=== PATIENT | female | born 1945 | race Two or more races ===

== ENCOUNTER 2025-07-02 17:09 | Inpatient (IN) | payer MEDICARE, MEDICAID ==
[~2025-07-02] VITALS: Ht 154.9 cm; Wt 116.8 kg
[~2025-07-02 17:09] MED LIST: ALPR0.254 PO; AMIO200T33 PO; APIX5TAB PO; ATOR40TA52 PO; DOXY100C79 PO; FLUT1INH6 IN; FURO40TA4 PO; HYDR25TA88 PO; LEVE500T40 PO; LEVO125T7 PO; LOSA-533 PO; METF-370 PO; METO-158 PO; PAR20T PO; POTA-36 PO; SPIR25TA8 PO
--- NOTE | 2025-07-02 17:14 | ED.PDOC ---
GI ASSESSMENT HPI Comments 80 y/o obese, bed-bound, and Estonian-speaking F is JAI from private residence for c/c of nonradiating, lower abdominal pain with constipation for 1 week. On scene, patient was found in AFib RVR in the 130's range. Remaining vitals on scene and en route were commented to have been stable and within normal limits. On scene blood glucose of 171. Vitals on scene: Blood pressure of 135/62 Pulse: 130 Respiratory rate: 20 SpO2: 96% on 3LPM home O2 HPI: Poor Historian. bueno: afib rvr, abd pain x1wk. on O2. on plavix obese, bed ridden, r deficit CVA, nancy edema 3/4 Past Medical History: AFib w/RVR, CHF, DM, COPD w/3lpm, CVA w/right sided and speech deficits, Plavix use Past Surgical History: pacemaker Discharge Summary Date of Admission Mar 23, 2025 at 19:49 Date of Discharge: Apr 02, 2025 Admitting Diagnosis AFib with RVR Final Diagnosis/Problems List Atrial fibrillation with rapid ventricular rate -acute hypoxic respiratory failure -AFib with RVR -diabetes mellitus -morbid obesity -acute kidney injury, vasomotor nephropathy -anemia -questionable bacteremia -history of PPI with end of life battery -hyperkalemia -acute kidney injury, probable vasomotor nephropathy REVIEW OF SYSTEMS: CONSTITUTIONAL: Denies acute: fever, diaphoresis, chills, HEAD: Denies acute: headache, photophobia Eyes: Denies acute: Double vision, vision loss, eye pain, eye discharge. EARS: Denies acute: tinnitus, hearing loss, ear discharge, ear pain, THROAT: Denies acute: sore throat, swelling, difficulty swallowing , pain with swallowing, change in voice. NECK: Denies acute: neck pain, neck swelling, stiff neck. HEART: Denies acute : chest pain, palpitations, LUNGS: Denies acute: SOB, wheezing, cough, hemoptysis ABDOMEN: Denies acute: Nausea, Vomiting, diarrhea, melena , hematemesis, hematochezia SKIN: Denies acute: rash, redness, lesions, itchiness. EXTREMITIES: Denies acute: calf pain, numbness, tingling, weakness, denies pain in extremity. Denies acute: Low back pain. Neuro: Denies acute: focal neurological deficit, motor or sensory focal neurological deficit, tremors, seizure like activity, confusion, dizziness, change in mental status, loss of bowel or bladder function, cauda equina like symptoms. : Denies acute: dysuria, hematuria, flank pain, increase in urinary frequency. PSYCH: Denies acute: hallucination, suicidal ideation, homicidal ideation. FEMALE: Denies acute: abnormal vaginal bleeding, foul odor, unusual discharge. PHYSICAL EXAM: General: ------moderate--acute distress, awake and alert. Head: normocephalic, atraumatic. No raccoon's eyes, no ba sign. Neck: supple, trachea is midline, no swelling. Throat: Normal phonation. Eyes:, no erythema, no purulent discharge, no proptosis, no icterus. Heart: Irregular rate and rhythm consistent with atrial fibrillation with RVR, no significant murmur appreciated. Lungs: no apparent respiratory distress, No wheezing, no rhonchi, no crackles. No stridors Clear to auscultation bilaterally. Abdomen: Generalized tender to palpation, non distended, soft, no guarding, no rebound, + bowel sounds. Morbidly obese Neuro: Awake, Alert, oriented to name, self, situation, follows commands Skin: no petechia, no purpura, no cyanosis, non-pale, not jaundice. Lower extremities: --3/4 b/l - Pitting edema no deformity, no focal swelling, no calf TTP. Makes eye contact. Face: no apparent facial droop. ED COURSE: DISCLAIMER: This medical document was created using an electronic medical record system with voice recognition software and computerized dictation system. Although this document has been carefully reviewed, there might still be some phonetic and typographical errors. Occasional wrong-word or "sound-alike" substitutions may have occurred due to the inherent limitations of voice recognition software. These areas are purely typographical due to imperfections of the software programs and do not reflect any compromise in the patient's medical care. Please read the chart carefully and recognize, using context, where these substitutions have occurred. Chief Complaint: Abdominal Pain Time Seen by MD: 17:00 Reviewed Notes: Apparel Pattern Maker Notes, Medications, Allergies Allergies: Coded Allergies: NO KNOWN ALLERGIES (Unverified , 03/23/25) Home Meds Active Scripts Oseltamivir Phosphate (Tamiflu) 75 Mg Cap, 75 MG PO DAILY, #4 CAP Prov:NEERAJ WOMACK MD 07/06/25 Cholecalciferol (VITAMIN D3) 3,000 Unit Tab, 3000 UNIT PO DAILY PRN, #30 TAB Prov:NEERAJ WOMACK MD 07/06/25 Zinc Sulfate (Zinc) 220 Mg Cap, 220 MG PO DAILY, #30 CAP Prov:NEERAJ WOMACK MD 07/06/25 Ascorbic Acid (VITAMIN C) 500 Mg Cap, 500 MG PO BID, #30 CAP Prov:NEERAJ WOMACK MD 07/06/25 Doxycycline (Monohydrate) (Doxycycline) 100 Mg Cap, 100 MG PO BID for 5 Days, #10 CAP Prov:BG VALLEJO NP 04/02/25 Reported Medications Metoprolol Tartrate (Metoprolol Tartrate) 50 Mg Tab, 50 MG PO BIDD for 30 Days, MG 03/31/25 Fluticasone Furoate-Vilanterol (Breo Ellipta 200-25 Mcg/INH) 1 Inh Inh, 1 INH IN, INHALER 03/24/25 Levetiracetam (Keppra) 500 Mg Tab, 500 MG PO, TAB 03/24/25 Atorvastatin Calcium (ATORVASTATIN CALCIUM) 40 Mg Tab, 40 MG PO DAILY, TAB 03/24/25 Furosemide (Furosemide) 40 Mg Tab, 40 MG PO DAILY for 30 Days 03/24/25 Spironolactone (Spironolactone) 25 Mg Tab, 25 MG PO, TAB 03/24/25 Amiodarone Hcl (Amiodarone Hcl) 200 Mg Tab, 100 MG PO DAILY for 30 Days 03/24/25 Alprazolam (Alprazolam) 0.25 Mg Tab, 0.25 MG PO DAILYPRN PRN for ANXIETY, TAB 03/24/25 Paroxetine (PAXIL TABLET) 20 Mg Tb, 20 MG PO, TAB 03/24/25 Levothyroxine Sodium (Levothyroxine Sodium) 125 Mcg Tab, 125 MCG PO QAM for 30 Days, MCG 03/24/25 Losartan Potassium (Losartan Potassium) 25 Mg Tab, 25 MG PO DAILY for 30 Days, MG 03/24/25 Hydralazine Hcl (Hydralazine Hcl) 25 Mg Tab, 25 MG PO for 30 Days, MG 03/24/25 Apixaban Base (ELIQUIS) 5 Mg Tab, 5 MG PO DAILY, TAB 03/24/25 Metformin Hydrochloride (Metformin Hcl) 500 Mg Tab, 500 MG PO IBID for 30 Days, MG 03/24/25 Potassium Chloride (POTASSIUM CHLORIDE CR) 10 Meq Tb, 20 MEQ PO, TAB 03/24/25 Information Source: Emergency Med Personnel Past Medical History PAST MEDICAL HISTORY: AFIB, CHF, DM, HTN Surgical History: Pacemaker STORE SALES CONSULTANT History: No Pertinent STORE SALES CONSULTANT History Social History Smoker: Non-Smoker Alcohol: Denies ETOH Use Drugs: Denies Drug Use Was a procedure done? Was a procedure done?: No GI differential Dx Differential Diagnosis: Other (DDX include Diverticulitis, colitis, gastroenteritis, acute abdomen, SBO, enteritis, constipation, volvulus, appendicitis, Gallbladder disease, choledocolithiasis, ascending cholangitis, pancreatitis, intraAbdominal mass/neoplasm, hepatitis, UTI, pylonephritis, kidney stone, aneurysm, dissection, Inflammatory bowel disease, gastroparesis, ischemic bowel,,,,,,Food poisoning, bacterial/parasitic/viral etiology, trauma, diabetes DKA,ovarian torsion, ovarian cyst/mass, tubo-ovarian abscess, ) X-Ray, Labs, Meds, VS Vital Signs Date Time Temp Pulse Resp B/P (MAP) Pulse Ox O2 Delivery O2 Flow Rate FiO2 07/02/25 20:00 141 07/02/25 19:28 126 20 97 Nasal Cannula* 4 36 07/02/25 19:28 98.1 124 20 153/63 (93) 97 98.1 07/02/25 19:10 188/79 07/02/25 18:35 126 07/02/25 17:45 131 24 99 Nasal Cannula* 4 36 07/02/25 17:45 131 30 140/79 (99) 95 07/02/25 17:10 98.4 138 18 109/63 96 98.4 Lab Test 07/02/25 20:37 07/02/25 19:41 07/02/25 19:09 07/02/25 17:42 Range/Units Troponin I High Sensitivity 18 17 16 </=34 ng/L Urine Color Light-yellow Yellow Urine Clarity Turbid H Clear Urine pH 5.0 5.0-9.0 Urine Specific [place] 1.009 1.001-1.035 Urine Protein Negative Negative Urine Ketones Negative Negative Urine Blood Trace H Negative /uL Urine Nitrite Negative Negative Urine Bilirubin Negative Negative Urine Urobilinogen Normal Negative mg/dL Urine Leukocyte Esterase 2+ Negative /uL Urine RBC 3 0 - 4 /hpf Urine Microscopic WBC 34 H 0-5 /HPF Urine Squamous Epithelial Cells Few <5 /hpf Urine Bacteria Many H None Seen /hpf Urine Hyaline Casts Few 0 - 2 /lpf Urine Mucus Few None Seen Urine Glucose 3+ H Normal mg/dL White Blood Count 9.0 4.4-10.8 10^3/uL Red Blood Count 3.31 L 4.0-5.20 10^6/uL Hemoglobin 9.2 L 12.2-16.2 g/dL Hematocrit 29.6 L 36.0-46.0 % Mean Corpuscular Volume 89.6 80.0-100.0 fL Mean Corpuscular Hemoglobin 27.8 L 28.0-32.0 pg Mean Corpuscular Hemoglobin Concent 31.1 L 32.0-36.0 g/dL Red Cell Distribution Width 17.4 H 11.8-14.3 % Platelet Count 239 140-450 10^3/uL Mean Platelet Volume 9.0 6.9-10.8 fL Neutrophils (%) (Auto) 77.2 37.0-80.0 % Lymphocytes (%) (Auto) 14.7 10.0-50.0 % Monocytes (%) (Auto) 7.2 0.0-12.0 % Eosinophils (%) (Auto) 0.5 0.0-7.0 % Basophils (%) (Auto) 0.4 0.0-2.0 % Neutrophils # (Auto) 6.9 1.6-8.6 10 ^3/uL Lymphocytes # (Auto) 1.3 0.4-5.4 10 ^3/uL Monocytes # (Auto) 0.6 0-1.3 10 ^3/uL Eosinophils # (Auto) 0 0-0.8 10 ^3/uL Basophils # (Auto) 0 0-0.2 10 ^3/uL Nucleated Red Blood Cells 0.0 % Sodium Level 136 136-145 mmol/L Potassium Level 5.2 H 3.5-5.1 mmol/L Chloride Level 100 98-107 mmol/L Carbon Dioxide Level 27 20-31 mmol/L Anion Gap 9 5-15 Blood Urea Nitrogen 22 9-23 mg/dL Creatinine 1.30 H 0.550-1.02 mg/dL Glomerular Filtration Rate Calc 41 >90 mL/min BUN/Creatinine Ratio 16.9 10.0-20.0 Serum Glucose 156 H 74-106 mg/dL Lactic Acid Level 1.4 0.4-2.0 mmol/L Calcium Level 9.3 8.7-10.4 mg/dL Magnesium Level 2.1 1.6-2.6 mg/dL Total Bilirubin 0.4 0.2-1.0 mg/dL Aspartate Amino Transferase (AST) 32 13-40 U/L Alanine Aminotransferase (ALT) 16 7-40 U/L Alkaline Phosphatase 168 H 46-116 U/L B-Type Natriuretic Peptide 266.68 0-100 pg/mL Total Protein 6.7 5.7-8.2 g/dL Albumin 4.0 3.2-4.8 g/dL Lipase 28 12-53 U/L Microbiology Date/Time Source Procedure Growth Status 07/02/25 19:41 Voided Urine Urine Culture - Final Klebsiella pneumoniae Complete [place] [address] Ph: [phone] DIAGNOSTIC IMAGING Diagnostic Imaging Report : [id number] Signed PATIENT: MILO BUENO ACCT: [id number] UNIT: [id number] : 1945 LOC: ER ROOM / BED: / AGE / SEX: 80 / F ADM STATUS: REG ER SERVICE [id number] ORDERING PHYSICIAN: PAULINE MILLER DO PROCEDURE(s): ABPL - CT AB PEL WO CON-NO ORAL OR IV REASON: abd pain ORDER NUMBER(s): [id number], ACCESSION NUMBER(s): [id number] EXAM: CT CT AB PEL WO CON-NO ORAL OR IV INDICATION: abd pain TECHNIQUE: Volumetric multidetector CT images of the abdomen and pelvis were obtained without contrast. All CT scans at this facility use dose modulation, iterative reconstruction, and/or weight based dosing when appropriate to reduce radiation dose to as low as reasonably achievable. COMPARISON: None FINDINGS: [LOWER CHEST]: Medium right-sided pleural effusion. Trace left pleural effusion. Patchy areas of ground-glass in the right middle lobe and right lower lobe with at least moderate cardiomegaly. Coronary artery calcifications. [LIVER]: Normal hepatic size without suspicious focal lesion. [GALLBLADDER AND BILIARY TREE]: Layering cholelithiasis. [SPLEEN]: Unremarkable. [PANCREAS]: Severe fatty atrophy of the pancreas. [ADRENAL GLANDS]: Unremarkable [KIDNEYS]: No hydronephrosis. No nephroureterolithiasis. No suspicious focal lesion. [BLADDER]: Unremarkable for the degree distention. [REPRODUCTIVE ORGANS]: Unremarkable. [BOWEL/MESENTERY]: Stomach is normal. No CT evidence of bowel obstruction. Mild stool burden. [ASCITES]: Absent [LYMPHADENOPATHY]: No pathologically enlarged lymph nodes by CT size criteria [VASCULATURE]: No aneurysmal dilatation. [ABDOMINAL WALL]: Diffuse mild body wall edema. [MUSCULOSKELETAL]: Wedge compression deformity of L2 with vertebral plana anteriorly and subsequent height loss of the level. Sclerosis of the L3 which may be sequelae of prior injury. Multifocal degenerative change of the visualized spine. IMPRESSION: 1. Medium right-sided pleural effusion with patchy areas of ground-glass in the right middle lobe and right lower lobe. 2. No CT evidence of an acute abdominal/pelvic process. 3. Cholelithiasis. 4. Wedge compression deformity of L2 with vertebral plana anteriorly and subsequent height loss of the level. 5. Sclerosis of the L3 which may be sequelae of prior injury. ATED BY: LEROY BOYKIN MD DICTATED DATE/TIME: 07/02/251853 SIGNED BY: LEROY BOYKIN MD SIGNED DATE/TIME: 07/02/251853 CC: [place] [address] Ph: [phone] DIAGNOSTIC IMAGING Diagnostic Imaging Report : [id number] Signed PATIENT: MILO BUENO ACCT: [id number] UNIT: [id number] : 1945 LOC: ER ROOM / BED: / AGE / SEX: 80 / F ADM STATUS: REG ER SERVICE [id number] ORDERING PHYSICIAN: PAULINE MILLER DO PROCEDURE(s): CXRP - CHEST PORTABLE REASON: afib rvr, abd pain ORDER NUMBER(s): [id number], ACCESSION NUMBER(s): [id number] EXAM: XY CHEST PORTABLE HISTORY: afib rvr, abd pain TECHNIQUE: 1 view of the chest COMPARISON: XY CHEST PORTABLE on DOS: 04/01/25 FINDINGS/IMPRESSION: LUNGS: Central pulmonary vascular congestion with peripheral interstitial edema. Trace bilateral pleural effusions. Correlate for volume overload. MEDIASTINUM: Mild cardiomegaly. 2 lead left anterior chest cardiac device BONES: No acute osseous abnormality. OTHER: None. ATED BY: LEROY BOYKIN MD DICTATED DATE/TIME: 07/02/251839 SIGNED BY: LEROY BOYKIN MD SIGNED DATE/TIME: 07/02/251839 CC: Time of 1ST Reevaluation: 22:05 (I was just informed that the patient amiodarone has not been running until now.) Reevaluation 1ST: Unchanged Patient Education/Counseling: Diagnosis, Treatment Family Education/Counseling: No Family Present Comments MDM: patient presented with the above HPI.---abdominal pain and atrial fibrillation---workup was initiated. patient was found with the above mentioned diagnosis. the following medications were ordered: please refer to order lists of meds and tests obtained by myself Dr. Miller. Patient ED course and VS have been stabilized. Patient has been reassessed in the ED and remained in a stable condition. Pertinent incidental findings were discussed with the patient and/or family. Patient/family voices understanding and is agreeable with plan. Patient has been observed in the ED adequate length of time to insure improvement/stability. Escalation of care considered: Consideration of escalation to observation or admission Patient was ADMITTED to the medicine team for further evaluation and treatment of their presentation. All the reports of any imaging studies that were ordered by myself were reviewed by myself. SEPSIS Sepsis Screen Physician Orders Entertainment Centre Manager (07/02/25 ) Chest Portable (07/02/25 17:16) Electrocardigram (07/02/25 17:10) Electrocardigram (07/02/25 18:10) Electrocardigram (07/02/25 20:10) Ct Ab Pel Wo Con-No Oral Or Iv (07/02/25 17:15) Admit (07/02/25 23:06) Oxygen By Nasal Cannula (07/02/25 23:06) Vital Signs Date Time Temp Pulse Resp B/P (MAP) Pulse Ox O2 Delivery O2 Flow Rate FiO2 07/02/25 20:00 141 07/02/25 19:28 126 20 97 Nasal Cannula* 4 36 07/02/25 19:28 98.1 124 20 153/63 (93) 97 98.1 07/02/25 19:10 188/79 07/02/25 18:35 126 07/02/25 17:45 131 24 99 Nasal Cannula* 4 36 07/02/25 17:45 131 30 140/79 (99) 95 07/02/25 17:10 98.4 138 18 109/63 96 98.4 Laboratory Tests Test 07/02/25 17:42 Lactic Acid Level 1.4 mmol/L (0.4-2.0) White Blood Count 9.0 10^3/uL (4.4-10.8) Departure 1 Departure Time of Disposition: 17:39 Impression: Primary Impression: Atrial fibrillation with RVR Additional Impressions: Abdominal pain Pleural effusion Disposition: ADMITTED INPATIENT Admit to: [facility] Condition: Guarded e-Prescriptions Oseltamivir Phosphate (Tamiflu) 75 Mg Cap 75 MG PO DAILY, #4 CAP Prov: NEERAJ WOMACK MD 07/06/25 Cholecalciferol (VITAMIN D3) 3,000 Unit Tab 3000 UNIT PO DAILY PRN, #30 TAB Prov: NEERAJ WOMACK MD 07/06/25 Zinc Sulfate (Zinc) 220 Mg Cap 220 MG PO DAILY, #30 CAP Prov: NEERAJ WOMACK MD 07/06/25 Ascorbic Acid (VITAMIN C) 500 Mg Cap 500 MG PO BID, #30 CAP Prov: NEERAJ WOMACK MD 07/06/25 Discharged With: Self Critical Care Note Critical Care Time?: Yes (45 min-critical care time only) Critical care comment: Due to a high probability of clinically significant, life threatening deterioration, the patient required my highest level of preparedness to intervene emergently and I personally spent this critical care time directly and personally managing the patient. This critical care time included obtaining a history; examining the patient; pulse oximetry; ordering and review of studies; arranging urgent treatment with development of a management plan; evaluation of patient's response to treatment; frequent reassessment; and, discussions with other providers. This critical care time was performed to assess and manage the high probability of imminent, life-threatening deterioration that could result in multi-organ failure. It was exclusive of separately billable procedures and treating other patients and teaching time. Please see my other sections and the rest of the note for further information on patient assessment and treatment. Heart Score Heart Score: Heart Score Response (Comments) Value History Moderate Suspicious 1 EKG Repolarization Disturb 1 Age >65 2 Risk Factors 1 or 2 risk factors 1 Troponin Normal limit 0 Total 5 I personally scribed for PAULINE MILLER DO ([email or web address]) on 07/02/25 at 17:14. Electronically submitted by Stephen Gale ([email or web address]). I personally scribed for PAULINE MILLER DO ([email or web address]) on 07/02/25 at 18:17. Electronically submitted by Stephen Gale ([email or web address]). I personally scribed for PAULINE MILLER DO ([email or web address]) on 07/02/25 at 21:37. Electronically submitted by Alesha Mariano ([email or web address]). PAULINE MILLER DO Jul 02, 2025 17:14
[2025-07-02 17:45] VITALS: PULSE 131; RESP 24; O2SAT 99
[2025-07-02 18:05] LABS: Hematocrit 29.6 % (36.0-46.0); Hemoglobin 9.2 g/dL (12.2-16.2); Mean Corpuscular Hemoglobin 27.8 pg (28.0-32.0); Mean Corpuscular Volume 89.6 fL (80.0-100.0); Nucleated Red Blood Cells % 0.0 %
[2025-07-02 18:20] LABS: Alanine Aminotransferase 16 U/L (7-40); Albumin 4.0 g/dL (3.2-4.8); Anion Gap 9 (5-15); BUN/Creatinine Ratio 16.9 (10.0-20.0); Bilirubin, Total 0.4 mg/dL (0.2-1.0); Blood Urea Nitrogen 22 mg/dL (9-23); Calcium 9.3 mg/dL (8.7-10.4); Carbon Dioxide 27 mmol/L (20-31); Chloride 100 mmol/L (98-107); Lipase 28 U/L (12-53); Magnesium 2.1 mg/dL (1.6-2.6); Sodium 136 mmol/L (136-145); Total Protein 6.7 g/dL (5.7-8.2)
[2025-07-02 18:23] LABS: Alkaline Phosphatase 168 U/L (46-116); Glucose 156 mg/dL (74-106); Potassium 5.2 mmol/L (3.5-5.1)
[2025-07-02] MEDS: PIPERACILLIN-TAZOB 3.375GM 100 ML IV ONE (18:30)
--- NOTE | 2025-07-02 18:42 | DVH ---
EXAM: XY CHEST PORTABLE HISTORY: afib rvr, abd pain TECHNIQUE: 1 view of the chest COMPARISON: XY CHEST PORTABLE on DOS: 04/01/25 FINDINGS/IMPRESSION: LUNGS: Central pulmonary vascular congestion with peripheral interstitial edema. Trace bilateral pleural effusions. Correlate for volume overload. MEDIASTINUM: Mild cardiomegaly. 2 lead left anterior chest cardiac device BONES: No acute osseous abnormality. OTHER: None.
--- NOTE | 2025-07-02 18:56 | DVH ---
EXAM: CT CT AB PEL WO CON-NO ORAL OR IV INDICATION: abd pain TECHNIQUE: Volumetric multidetector CT images of the abdomen and pelvis were obtained without contrast. All CT scans at this facility use dose modulation, iterative reconstruction, and/or weight based dosing when appropriate to reduce radiation dose to as low as reasonably achievable. COMPARISON: None FINDINGS: [LOWER CHEST]: Medium right-sided pleural effusion. Trace left pleural effusion. Patchy areas of ground-glass in the right middle lobe and right lower lobe with at least moderate cardiomegaly. Coronary artery calcifications. [LIVER]: Normal hepatic size without suspicious focal lesion. [GALLBLADDER AND BILIARY TREE]: Layering cholelithiasis. [SPLEEN]: Unremarkable. [PANCREAS]: Severe fatty atrophy of the pancreas. [ADRENAL GLANDS]: Unremarkable [KIDNEYS]: No hydronephrosis. No nephroureterolithiasis. No suspicious focal lesion. [BLADDER]: Unremarkable for the degree distention. [REPRODUCTIVE ORGANS]: Unremarkable. [BOWEL/MESENTERY]: Stomach is normal. No CT evidence of bowel obstruction. Mild stool burden. [ASCITES]: Absent [LYMPHADENOPATHY]: No pathologically enlarged lymph nodes by CT size criteria [VASCULATURE]: No aneurysmal dilatation. [ABDOMINAL WALL]: Diffuse mild body wall edema. [MUSCULOSKELETAL]: Wedge compression deformity of L2 with vertebral plana anteriorly and subsequent height loss of the level. Sclerosis of the L3 which may be sequelae of prior injury. Multifocal degenerative change of the visualized spine. IMPRESSION: 1. Medium right-sided pleural effusion with patchy areas of ground-glass in the right middle lobe and right lower lobe. 2. No CT evidence of an acute abdominal/pelvic process. 3. Cholelithiasis. 4. Wedge compression deformity of L2 with vertebral plana anteriorly and subsequent height loss of the level. 5. Sclerosis of the L3 which may be sequelae of prior injury.
[2025-07-02] MEDS: FUROSEMIDE 40 MG/4 ML VIAL IV ONE (19:10)
[2025-07-02 19:28] VITALS: PULSE 126; RESP 20; O2SAT 97
[2025-07-02 20:00] LABS: Urine Protein, UAD Negative (Negative)
[2025-07-03] VITALS (18 sets, daily range): BP systolic 93–137; BP diastolic 50–88; PULSE 50–134; RESP 16–20; TEMP 96.6–98.1; O2SAT 93–100
--- NOTE | 2025-07-03 02:01 | DVHHPRES ---
History of Present Illness Resident Creating Document: GET SKINNER RESDIENT History of Present Illness This is an 80-year-old lady with past medical history of hypertension, dyslipidemia, hypothyroidism, AFib, AHF with mildly reduced EF, diabetes, COPD (on 3 L of oxygen at home), right-sided CVA, status post femur, brought to the hospital due to shortness of breath for 1 days. She also reports of constipation and abdominal pain since 1 week. She denies fever, cough, chest pain, or any recent sick contact. PMHx: Seizure, hypertension, dyslipidemia, hypothyroidism, AFib, HF with mildly reduced EF, diabetes, COPD (on 3 L of oxygen at home), right-sided CVA, status pacemaker Social history: Patient is mostly bed-bound, use wheelchair for mobility, has a caregiver at home Home medication: Levetiracetam 500 mg, alprazolam, atorvastatin, Eliquis 5 mg b.i.d., iron, amiodarone 100 mg 3 times a week, losartan 25 mg, potassium, metformin 500 mg b.i.d., Farxiga 5 mg daily, hydralazine 25 mg b.i.d., spironolactone 25 mg daily, furosemide 40 mg daily, paroxetine 20 mg daily, levothyroxine 125 mcg Allergic history: No known allergy Patient seen and examined at the bedside, patient is feeling better since adm ission but still complaining of shortness of breaths. Review of Systems Review of Systems General: patient denies fever, fatigue, weaknes, sweating, any recent changes in appetite and weight HEENT: No headaches, visiual changes, hearing loss, tinnitus, nasal congestion and discharge, and sore throat. Cardiovascular: Denies chest pain, palpitations, dyspnea on exertion, orthopnea, or claudication. Respiratory: Reports shortness of breaths Gastrointestinal: Reports abdominal pain and constipation Genitourinary: No dysuria, hematuria, discharge, frequency, urgency, nocturia, incontinence, and urinary retention. Endocrine: No heat or cold intolerance, polydipsia, polyuria, and polyphagia. Neurological: No dizziness, extremity weakness and numbness, tremors, gait disturbance, seizures, and memory impairment. Psychiatric: Denies depression, anxiety,or insomnia. Musculoskeletal: Denies neck pain, stiffness and swelling, back pain, muscle weakness, joint pain, stiffness, swelling, or limited range of motion. Skin: No rashes, itching, skin lesion, changes in hair, nail, skin texture and breast. Hematologic/Lymphatic: Denies easy bruising, bleeding tendencies, or lymph node enlargement. Allergies: Coded Allergies: NO KNOWN ALLERGIES (Unverified , 03/23/25) Medications Current Medications Medications Dose Ordered Sig/Isa Route Start Time Stop Time Status Last Admin Dose Admin Amiodarone HCl 250 ml @ 16.66 mls/ hr Q15H1M STAT IV 07/02/25 17:30 07/03/25 08:30 07/02/25 18:00 16.66 MLS/HR Exam Vital Signs Vital Signs Date Time Temp Pulse Resp B/P (MAP) Pulse Ox O2 Delivery O2 Flow Rate FiO2 07/03/25 01:34 124 07/03/25 00:22 98.1 20 110/61 (77) 96 98.1 07/02/25 19:28 Nasal Cannula* 4 36 Exam General Appearance: Alert, Oriented X3, Cooperative, in moderate respiratory distress, morbidly obese HEENT: Atraumatic, PERRLA, EOMI, Mucous membrane moist/pink Respiratory: Right lower zone decreased breath sound, with mild crackles Cardiovascular: Regular rate, Normal S1, Normal S2, No murmurs, no chest wall tenderness Abdominal: Normal bowel sounds, Soft, No tenderness, No hepatospenomegaly, No masses Extremities: Bilateral grade 2-3 pedal edema Skin: No rashes, No breakdown, No significant lesion Neuro: Normal gait, Normal speech, Strength at 5/5 X4 ext, Normal tone, Sensation intact, Cranial nerves 3-12 NL, Reflexes 2+ Psych/Mental Status: Mental status NL, Mood NL Labs/Xrays Labs Test 07/02/25 20:37 07/02/25 19:41 07/02/25 17:42 Range/Units Troponin I High Sensitivity 18 </=34 ng/L Urine Color Light-yellow Yellow Urine Clarity Turbid H Clear Urine pH 5.0 5.0-9.0 Urine Specific [place] 1.009 1.001-1.035 Urine Protein Negative Negative Urine Ketones Negative Negative Urine Blood Trace H Negative /uL Urine Nitrite Negative Negative Urine Bilirubin Negative Negative Urine Urobilinogen Normal Negative mg/dL Urine Leukocyte Esterase 2+ Negative /uL Urine RBC 3 0 - 4 /hpf Urine Microscopic WBC 34 H 0-5 /HPF Urine Squamous Epithelial Cells Few <5 /hpf Urine Bacteria Many H None Seen /hpf Urine Hyaline Casts Few 0 - 2 /lpf Urine Mucus Few None Seen Urine Glucose 3+ H Normal mg/dL White Blood Count 9.0 4.4-10.8 10^3/uL Red Blood Count 3.31 L 4.0-5.20 10^6/uL Hemoglobin 9.2 L 12.2-16.2 g/dL Hematocrit 29.6 L 36.0-46.0 % Mean Corpuscular Volume 89.6 80.0-100.0 fL Mean Corpuscular Hemoglobin 27.8 L 28.0-32.0 pg Mean Corpuscular Hemoglobin Concent 31.1 L 32.0-36.0 g/dL Red Cell Distribution Width 17.4 H 11.8-14.3 % Platelet Count 239 140-450 10^3/uL Mean Platelet Volume 9.0 6.9-10.8 fL Neutrophils (%) (Auto) 77.2 37.0-80.0 % Lymphocytes (%) (Auto) 14.7 10.0-50.0 % Monocytes (%) (Auto) 7.2 0.0-12.0 % Eosinophils (%) (Auto) 0.5 0.0-7.0 % Basophils (%) (Auto) 0.4 0.0-2.0 % Neutrophils # (Auto) 6.9 1.6-8.6 10 ^3/uL Lymphocytes # (Auto) 1.3 0.4-5.4 10 ^3/uL Monocytes # (Auto) 0.6 0-1.3 10 ^3/uL Eosinophils # (Auto) 0 0-0.8 10 ^3/uL Basophils # (Auto) 0 0-0.2 10 ^3/uL Nucleated Red Blood Cells 0.0 % Sodium Level 136 136-145 mmol/L Potassium Level 5.2 H 3.5-5.1 mmol/L Chloride Level 100 98-107 mmol/L Carbon Dioxide Level 27 20-31 mmol/L Anion Gap 9 5-15 Blood Urea Nitrogen 22 9-23 mg/dL Creatinine 1.30 H 0.550-1.02 mg/dL Glomerular Filtration Rate Calc 41 >90 mL/min BUN/Creatinine Ratio 16.9 10.0-20.0 Serum Glucose 156 H 74-106 mg/dL Lactic Acid Level 1.4 0.4-2.0 mmol/L Calcium Level 9.3 8.7-10.4 mg/dL Magnesium Level 2.1 1.6-2.6 mg/dL Total Bilirubin 0.4 0.2-1.0 mg/dL Aspartate Amino Transferase (AST) 32 13-40 U/L Alanine Aminotransferase (ALT) 16 7-40 U/L Alkaline Phosphatase 168 H 46-116 U/L B-Type Natriuretic Peptide 266.68 0-100 pg/mL Total Protein 6.7 5.7-8.2 g/dL Albumin 4.0 3.2-4.8 g/dL Lipase 28 12-53 U/L SEPSIS Sepsis Screen Date sepsis recognized/suspect: Jul 02, 2025 Time Sepsis recognized/suspect: 1930 Recent Procedure: No On Antibiotic Therapy: No Respiratory Rate >20: No Heart Rate >90: Yes Temp<36 C (96.8 F) or >38.3 C: No SBP <90 or MAP <65 mmHG: No New Acute Mental Status Change: No Is the patient on CPAP, BIPAP,: No Physician Orders Insert Snyder Catheter QSHIFT (07/02/25 18:55) Admit (07/02/25 23:06) Oxygen By Nasal Cannula (07/02/25 23:06) Stat Ekg For Chest Pain (07/02/25 23:06) Notify Md Of Changes From Base (07/02/25 23:06) Emergency Dysrhythmia Protocol (07/02/25 23:06) Rhythm Strips Once Every Shift (07/02/25 23:06) Street Commissioner For 24 Hours (07/02/25 23:06) Vital Signs Date Time Temp Pulse Resp B/P (MAP) Pulse Ox O2 Delivery O2 Flow Rate FiO2 07/03/25 01:34 124 07/03/25 00:22 98.1 118 20 110/61 (77) 96 98.1 07/02/25 20:00 141 07/02/25 19:28 126 20 97 Nasal Cannula* 4 36 07/02/25 19:28 98.1 124 20 153/63 (93) 97 98.1 07/02/25 19:10 188/79 07/02/25 18:35 126 Laboratory Tests Test 07/02/25 17:42 Lactic Acid Level 1.4 mmol/L (0.4-2.0) White Blood Count 9.0 10^3/uL (4.4-10.8) Medications Medications Dose Ordered Sig/Isa Route Start Time Stop Time Status Last Admin Dose Admin Amiodarone HCl 250 ml @ 16.66 mls/ hr Q15H1M STAT IV 07/02/25 17:30 07/03/25 08:30 07/02/25 18:00 16.66 MLS/HR Furosemide 40 mg ONCE ONCE IV 07/02/25 17:30 07/02/25 17:32 DC 07/02/25 19:10 40 MG Piperacillin Sod/ Tazobactam Sod 100 ml @ 100 mls/hr ONCE ONCE IV 07/02/25 18:30 07/02/25 19:29 DC 07/02/25 18:30 100 MLS/HR Assessment/Plan Assessment/Plan Acute on chronic hypoxic respiratory failure, due to heart failure exacerbation Acute on chronic mildly reduced ejection fraction heart failure Volume overload, due to above Possible pneumonia, likely due to Gram-positive/Gram-negative bacteria COPD (on 3 L of oxygen at home), stable Atrial fibrillation with RVR Acquired hypercoagulability Hypertension Hypothyroidism Dyslipidemia Diabetes type 2 History of CVA Morbid obesity Moderate anemia Hypokalemia * EKGs shows AFib with RVR, with no significant ST or T-wave changes * Chest CT shows, medium right-sided pleural effusion with patchy areas of ground-glass in the right middle lobe and right lower lobe Plan/recommendation * IV diuretic Lasix 40 mg daily, spironolactone 25 mg daily * Empiric antibiotic azithromycin * Breathing treatment * Therapeutic Lovenox * Continue home meds * Calcium gluconate * Oxygen through nasal cannula DIET: According DVT PROPHYLAXIS: Lovenox CODE STATUS: Goal of care discussed for more than 18 minutes, full code DISPOSITION: Telemetry Patient's status and plan discussed with the patient. Case discussed with Dr. Funk. Plan discussed with: Patient, Other My Orders Orders - GET SKINNER RESDIASHLEY Procedure Category Date Status Time Admit ADMIT 07/02/25 Transmitted 23:06 Oxygen By Nasal RT 07/02/25 Transmitted Cannula 23:06 Stat Ekg For Chest CORNEL 12/19/25 In Process Pain 23:06 Notify Of Changes [facility] 07/02/25 In Process From Base 23:06 Emergency Dysrhythmia [facility] 07/02/25 In Process Protocol 23:06 Rhythm Strips Once [facility] 07/02/25 In Process Every Shift 23:06 Street Commissioner For [facility] 07/02/25 In Process 24 Hours 23:06 Visit Coding STANDARD RES Billing Provider: INOCENCIO FUNK MD Date of Service if different f: Jul 03, 2025 Common Visit Codes: [id number] INP/OBS CARE (HIGH) Secondary Visit Codes: [id number] CARE PLAN ADDL 30MIN GET SKINNER RESDIENT Jul 03, 2025 02:01
[2025-07-03] MEDS ORDERED: AZITHROMYCIN 500MG/250ML 250 ML IV ONE (02:15)
[2025-07-03] MEDS: ATORVASTATIN 20 MG TAB PO ONE (02:53)
[2025-07-03] MEDS: AMIODARONE HCL 200 MG TAB PO ONE (02:54)
[2025-07-03] MEDS: SPIRONOLACTONE 25 MG TAB PO ONE (02:54)
[2025-07-03] MEDS: PARoxetine 20 MG TAB PO ONE (02:55)
[2025-07-03] MEDS: AZITHROMYCIN 250 MG TAB PO SCH (02:57)
[2025-07-03] MEDS: METOPROLOL TARTRATE 25 MG TAB PO ONE (02:58)
[2025-07-03] MEDS: LOSARTAN POTASSIUM 50 MG TAB PO ONE (02:58)
[2025-07-03] MEDS: FUROSEMIDE 40 MG/4 ML VIAL IV ONE (03:00)
[2025-07-03] MEDS: CALCIUM GLUC 1,000mg/50ml-NS 50 ML IV ONE (03:13)
[2025-07-03] MEDS: ENOXAPARIN SOD 100 MG/1 ML SYRINGE SC ONE (03:16)
[2025-07-03] MEDS: LEVOTHYROXINE SODIUM 50 MCG TAB PO SCH (05:00)
[2025-07-03 06:42] LABS: COVID19 ANTIGEN SOFIA FIA POSITIVE (NEGATIVE)
[2025-07-03] MEDS: IPRATROPIUM BROM 0.5 MG/2.5ML INH SOL NEB SCH (08:02)
[2025-07-03] MEDS: ALBUTEROL SULF 2.5 MG/0.5ML(0.5%) NEB SOLN NEB SCH (08:02)
[2025-07-03 08:30] LABS: INR 1.22 (0.9-1.15); Partial Thromboplastin Time 36.3 SEC (24.5-34.5); Prothrombin Time 12.7 sec (9.3-11.8)
[2025-07-03 08:40] LABS: Magnesium 2.0 mg/dL (1.6-2.6)
[2025-07-03] MEDS: OSELTAMIVIR 30 MG CAP PO ONE (09:33)
[2025-07-03] MEDS: SPIRONOLACTONE 25 MG TAB PO SCH (09:33)
[2025-07-03] MEDS: PARoxetine 20 MG TAB PO SCH (09:33)
[2025-07-03] MEDS: METOPROLOL TARTRATE 25 MG TAB PO SCH (09:34)
[2025-07-03] MEDS: levETIRAcetam 500 MG TAB PO SCH (09:34)
[2025-07-03] MEDS: FUROSEMIDE 40 MG/4 ML VIAL IV SCH (09:34)
[2025-07-03] MEDS: ENOXAPARIN SOD 100 MG/1 ML SYRINGE SC SCH (09:35)
[2025-07-03] MEDS: LOSARTAN POTASSIUM 50 MG TAB PO SCH (09:35)
[2025-07-03] MEDS: AMIODARONE HCL 200 MG TAB PO SCH (09:36)
[2025-07-03] MEDS ORDERED: AZITHROMYCIN 500MG/250ML 250 ML IV SCH (10:00)
--- NOTE | 2025-07-03 10:38 | DVHPN2 ---
Reviewed: Care Plan, H&P, Labs, Medications, Previous Orders, Radiology Changes from previous H/P or p: No Changes Objective Vitals Vital Signs Date Time Temp Pulse Resp B/P (MAP) Pulse Ox O2 Delivery O2 Flow Rate FiO2 07/03/25 09:35 106/58 07/03/25 09:34 50 07/03/25 09:00 97.4 19 97 97.4 07/03/25 08:02 Nasal Cannula* 2 28 Intake/Output Intake and Output 07/03/25 07:00 Intake Total 210 ml Output Total 450 ml Balance -240 ml Intake Oral 10 ml IV Total 200 ml Output Urine Total 450 ml Medications Current Medications Medications Dose Ordered Sig/Isa Route Start Time Stop Time Status Last Admin Dose Admin Furosemide 40 mg DAILY IV 07/03/25 10:00 07/03/25 09:34 40 MG Spironolactone 25 mg DAILY PO 07/03/25 10:00 07/03/25 09:33 25 MG Enoxaparin Sodium 100 mg Q12HR SC 07/03/25 10:00 07/03/25 09:35 100 MG Atorvastatin Calcium 40 mg HS PO 07/03/25 22:00 Levothyroxine Sodium 125 mcg QAM@0600 PO 07/03/25 06:00 07/03/25 05:00 125 MCG Paroxetine HCl 20 mg DAILY PO 07/03/25 10:00 07/03/25 09:33 20 MG Metoprolol Tartrate 75 mg BID PO 07/03/25 10:00 Losartan Potassium 50 mg DAILY PO 07/03/25 10:00 07/03/25 09:35 50 MG Levetiracetam 500 mg BID PO 07/03/25 10:00 07/03/25 09:34 500 MG Amiodarone HCl 100 mg DAILY PO 07/03/25 10:00 07/03/25 09:36 100 MG Ipratropium [place] 0.5 mg Q6HWA NEB 07/03/25 06:00 07/03/25 08:02 0.5 MG Albuterol 2.5 mg Q6HWA NEB 07/03/25 06:00 07/03/25 08:02 2.5 MG Lactulose 30 ml BIDPRN PRN PO 07/03/25 02:15 Azithromycin 500 mg DAILY PO 07/03/25 02:30 07/03/25 09:34 500 MG Oseltamivir Phosphate 30 mg BID PO 07/03/25 22:00 07/08/25 21:59 Laboratory Results Laboratory Tests 07/02/25 17:42 Chemistry Test 07/02/25 17:42 07/03/25 07:52 Albumin 4.0 g/dL (3.2-4.8) Calcium Level 9.3 mg/dL (8.7-10.4) Magnesium Level 2.1 mg/dL (1.6-2.6) 2.0 mg/dL (1.6-2.6) Total Protein 6.7 g/dL (5.7-8.2) Phosphorus Level 4.3 mg/dL (2.4-5.1) Coagulation Test 07/03/25 07:52 Prothrombin Time 12.7 sec (9.3-11.8) H Prothrombin Time INR 1.22 (0.9-1.15) H Activated Partial Thromboplast Time 36.3 SEC (24.5-34.5) H Lipid panel Test 07/02/25 17:42 Lipase 28 U/L (12-53) Cardiac Markers Test 07/02/25 17:42 B-Type Natriuretic Peptide 266.68 pg/mL (0-100) LFT Test 07/02/25 17:42 Alanine Aminotransferase (ALT) 16 U/L (7-40) Alkaline Phosphatase 168 U/L (46-116) H Aspartate Amino Transferase (AST) 32 U/L (13-40) Total Bilirubin 0.4 mg/dL (0.2-1.0) HgA1c, TSH Test 07/03/25 07:52 Hemoglobin A1c 5.7 % A1C (<5.7) Thyroid Stimulating Hormone (TSH) 4.44 uIU/mL (0.55-4.78) Urinalysis Test 07/02/25 19:41 Urine Color Light-yellow (Yellow) Urine Clarity Turbid (Clear) H Urine pH 5.0 (5.0-9.0) Urine Specific [place] 1.009 (1.001-1.035) Urine Protein Negative (Negative) Urine Ketones Negative (Negative) Urine Blood Trace /uL (Negative) H Urine Nitrite Negative (Negative) Urine Bilirubin Negative (Negative) Urine Urobilinogen Normal mg/dL (Negative) Urine Leukocyte Esterase 2+ /uL (Negative) Urine RBC 3 /hpf (0 - 4) Urine Microscopic WBC 34 /HPF (0-5) H Urine Squamous Epithelial Cells Few /hpf (<5) Urine Bacteria Many /hpf (None Seen) H Urine Hyaline Casts Few /lpf (0 - 2) Urine Mucus Few (None Seen) Urine Glucose 3+ mg/dL (Normal) H Labs and/or images reviewed: Labs reviewed by me, Image(s) reviewed by me Assessment/Plan Assessment/Plan Acute on chronic hypoxic respiratory failure, due to heart failure exacerbation Acute on chronic congestive heart failure mildly reduced ejection fraction Volume overload, due to above Possible pneumonia, likely due to Gram-positive/Gram-negative bacteria Rocephin azithromycin COPD (on 3 L of oxygen at home), stable Atrial fibrillation with RVR Acquired hypercoagulability Flu type B positive: Tamiflu Hypertension Hypothyroidism UTI: Urine cultures blood cultures Rocephin Dyslipidemia Diabetes type 2 History of CVA Morbid obesity Moderate anemia Hypokalemia Time spent 70 minutes Advanced care planning time 20 minutes Patient is full code Examined with the help of websphere message broker developer DON Montenegro Plan discussed with: Patient Date of Service: Jul 03, 2025 Billing Provider: NEERAJ WOMACK MD Common Visit Codes: [id number] INP/OBS CARE(HIGH) NEERAJ WOMACK MD Jul 03, 2025 10:38
[2025-07-03] MEDS: ATORVASTATIN 20 MG TAB PO SCH (22:24)
[2025-07-03] MEDS: OSELTAMIVIR 30 MG CAP PO SCH (22:25)
[2025-07-04] VITALS (14 sets, daily range): BP systolic 96–136; BP diastolic 56–75; PULSE 72–106; RESP 16–19; TEMP 97–97.9; O2SAT 93–100
[2025-07-04 06:01] LABS: Hematocrit 29.1 % (36.0-46.0); Hemoglobin 9.0 g/dL (12.2-16.2); Mean Corpuscular Hemoglobin 27.4 pg (28.0-32.0); Mean Corpuscular Volume 88.8 fL (80.0-100.0); Nucleated Red Blood Cells % 0.1 %
[2025-07-04 06:22] LABS: Alanine Aminotransferase 16 U/L (7-40); Albumin 3.6 g/dL (3.2-4.8); BUN/Creatinine Ratio 15.1 (10.0-20.0); Calcium 9.6 mg/dL (8.7-10.4); Carbon Dioxide 29 mmol/L (20-31); Total Protein 6.1 g/dL (5.7-8.2)
[2025-07-04 06:23] LABS: Bilirubin, Total 0.3 mg/dL (0.2-1.0)
[2025-07-04 06:26] LABS: Alkaline Phosphatase 139 U/L (46-116); Blood Urea Nitrogen 28 mg/dL (9-23); Glucose 116 mg/dL (74-106)
[2025-07-04 06:33] LABS: Anion Gap 9 (5-15); Chloride 99 mmol/L (98-107); Potassium 4.7 mmol/L (3.5-5.1); Sodium 137 mmol/L (136-145)
--- NOTE | 2025-07-04 10:53 | DVHPN2 ---
Reviewed: Care Plan, H&P, Labs, Medications, Previous Orders, Radiology Changes from previous H/P or p: No Changes Objective Vitals Vital Signs Date Time Temp Pulse Resp B/P (MAP) Pulse Ox O2 Delivery O2 Flow Rate FiO2 07/04/25 09:45 112/75 07/04/25 09:44 93 07/04/25 09:00 97.9 16 98 97.9 07/04/25 08:00 Nasal Cannula* 3 32 Intake/Output Intake and Output 07/04/25 07:00 Intake Total 440 ml Output Total 1100 ml Balance -660 ml Intake Oral 390 ml IV Total 50 ml Output Urine Total 1100 ml Medications Current Medications Medications Dose Ordered Sig/Isa Route Start Time Stop Time Status Last Admin Dose Admin Furosemide 40 mg DAILY IV 07/03/25 10:00 07/04/25 09:43 40 MG Spironolactone 25 mg DAILY PO 07/03/25 10:00 07/04/25 09:44 25 MG Enoxaparin Sodium 100 mg Q12HR SC 07/03/25 10:00 07/04/25 09:43 100 MG Atorvastatin Calcium 40 mg HS PO 07/03/25 22:00 07/03/25 22:24 40 MG Levothyroxine Sodium 125 mcg QAM@0600 PO 07/03/25 06:00 07/04/25 06:15 125 MCG Paroxetine HCl 20 mg DAILY PO 07/03/25 10:00 07/04/25 09:44 20 MG Metoprolol Tartrate 75 mg BID PO 07/03/25 10:00 07/04/25 09:44 75 MG Losartan Potassium 50 mg DAILY PO 07/03/25 10:00 07/04/25 09:45 50 MG Levetiracetam 500 mg BID PO 07/03/25 10:00 07/04/25 09:44 500 MG Amiodarone HCl 100 mg DAILY PO 07/03/25 10:00 07/04/25 09:42 100 MG Ipratropium [place] 0.5 mg Q6HWA NEB 07/03/25 06:00 07/03/25 19:41 0.5 MG Albuterol 2.5 mg Q6HWA NEB 07/03/25 06:00 07/03/25 19:41 2.5 MG Lactulose 30 ml BIDPRN PRN PO 07/03/25 02:15 Azithromycin 500 mg DAILY PO 07/03/25 02:30 07/04/25 09:44 500 MG Oseltamivir Phosphate 30 mg BID PO 07/03/25 22:00 07/08/25 21:59 07/04/25 09:45 30 MG Ceftriaxone Sodium 50 ml @ 100 mls/hr DAILY@09 IV 07/04/25 09:00 07/04/25 09:42 100 MLS/HR Laboratory Results Laboratory Tests 07/04/25 04:56 Chemistry Test 07/04/25 04:56 Albumin 3.6 g/dL (3.2-4.8) Calcium Level 9.6 mg/dL (8.7-10.4) Total Protein 6.1 g/dL (5.7-8.2) LFT Test 07/04/25 04:56 Alanine Aminotransferase (ALT) 16 U/L (7-40) Alkaline Phosphatase 139 U/L (46-116) H Aspartate Amino Transferase (AST) 20 U/L (13-40) Total Bilirubin 0.3 mg/dL (0.2-1.0) Urinalysis Test 07/02/25 19:41 Urine Color Light-yellow (Yellow) Urine Clarity Turbid (Clear) H Urine pH 5.0 (5.0-9.0) Urine Specific [place] 1.009 (1.001-1.035) Urine Protein Negative (Negative) Urine Ketones Negative (Negative) Urine Blood Trace /uL (Negative) H Urine Nitrite Negative (Negative) Urine Bilirubin Negative (Negative) Urine Urobilinogen Normal mg/dL (Negative) Urine Leukocyte Esterase 2+ /uL (Negative) Urine RBC 3 /hpf (0 - 4) Urine Microscopic WBC 34 /HPF (0-5) H Urine Squamous Epithelial Cells Few /hpf (<5) Urine Bacteria Many /hpf (None Seen) H Urine Hyaline Casts Few /lpf (0 - 2) Urine Mucus Few (None Seen) Urine Glucose 3+ mg/dL (Normal) H Labs and/or images reviewed: Labs reviewed by me, Image(s) reviewed by me Assessment/Plan Assessment/Plan Acute on chronic hypoxic respiratory failure, oxygen by nasal cannula Acute on chronic congestive heart failure mildly reduced ejection fraction Volume overload, due to above Possible pneumonia, likely due to Gram-positive/Gram-negative bacteria Rocephin azithromycin COPD (on 3 L of oxygen at home), stable Atrial fibrillation with RVR Acquired hypercoagulability Flu type B positive: Tamiflu COVID positive pneumonia: Zinc vitamin-C vitamin D3 Decadron Hypertension Hypothyroidism UTI: Urine cultures blood cultures Rocephin Dyslipidemia Diabetes type 2 History of CVA Morbid obesity Moderate anemia Hypokalemia Time spent 50 minutes Advanced care planning time 20 minutes Patient is full code Examined with the help of line out man patient's daughter Oxana [phone] Plan discussed with: Patient My Orders Orders - NEERAJ WOMACK MD Procedure Category Date Status Time Blood Culture GERI 07/03/25 In Process 10:40 Urine Bacterial GERI 07/03/25 In Process Culture 10:40 Ceftriaxone 1gm/50ml PHA 07/04/25 In Process (Rocephin) 09:00 Date of Service: Jul 04, 2025 Billing Provider: NEERAJ WOMACK MD Common Visit Codes: [id number] INP/OBS CARE(HIGH) NEERAJ WOMACK MD Jul 04, 2025 10:53
[2025-07-04] MEDS: ZINC SULFATE 220mg CAP or TAB PO ONE (11:13)
[2025-07-04] MEDS: CHOLECALCIFEROL (VITD3) 1,000UNIT=25mCg TAB PO ONE (11:13)
[2025-07-04] MEDS: LACTULOSE 20Gm/30ML SOLN PO PRN (13:00)
--- NOTE | 2025-07-04 15:01 | CONS ---
Pharmacy Clinical Information: Patient's renal function declining, current CrCl=25.5. Recommend changing e noxaparin to patient's home med Eliquis. Patient currently on azithromycin 500mg po daily. Patient is 80 years old, patient is being treated for arrhythmia, and most recent QTc was 500ms on 03/23/25. Recommend changing azithromycin to doxycycline. [employer] PHARMACIST Jul 04, 2025 15:01
[2025-07-04] MEDS: ASCORBIC ACID 500 MG TAB PO SCH (21:49)
[2025-07-05] VITALS (15 sets, daily range): BP systolic 106–139; BP diastolic 55–74; PULSE 74–115; RESP 16–20; TEMP 97.2–98.4; O2SAT 95–100
[2025-07-05 06:25] LABS: Hematocrit 27.0 % (36.0-46.0); Hemoglobin 8.5 g/dL (12.2-16.2); Mean Corpuscular Hemoglobin 27.7 pg (28.0-32.0); Mean Corpuscular Volume 88.3 fL (80.0-100.0); Nucleated Red Blood Cells % 0.1 %
[2025-07-05 06:48] LABS: Alanine Aminotransferase 19 U/L (7-40); Albumin 3.1 g/dL (3.2-4.8); Alkaline Phosphatase 135 U/L (46-116); Anion Gap 10 (5-15); BUN/Creatinine Ratio 22.9 (10.0-20.0); Bilirubin, Total 0.2 mg/dL (0.2-1.0); Blood Urea Nitrogen 41 mg/dL (9-23); Calcium 9.1 mg/dL (8.7-10.4); Carbon Dioxide 27 mmol/L (20-31); Chloride 100 mmol/L (98-107); Glucose 178 mg/dL (74-106); Potassium 4.9 mmol/L (3.5-5.1); Sodium 137 mmol/L (136-145); Total Protein 5.5 g/dL (5.7-8.2)
[2025-07-05] MEDS: CHOLECALCIFEROL (VITD3) 1,000UNIT=25mCg TAB PO SCH (10:04)
[2025-07-05] MEDS: ENOXAPARIN SOD 100 MG/1 ML SYRINGE SC SCH (10:06)
--- NOTE | 2025-07-05 10:12 | ECG ---
[facility] [place] Test Date: 2025-07-02 Test Time: 18:35:02 Pat Name: MILO BUENO Department: [facility] ED Patient ID: [id number] Room: 0238T A Gender: F Pricing Consultant: andra : 1945 Requested By: PAULINE MILLER Order Number: [id number] Reading MD: Burke Reynaga Measurements Intervals [place] Rate: 126 P: 0 HI: 0 QRS: -47 QRSD: 113 T: 145 QT: 364 QTc: 528 Interpretive Statements Atrial fibrillation Left anterior fascicular block Low voltage, precordial leads Consider anterior infarct Repol abnrm suggests ischemia, lateral leads Prolonged QT interval Electronically Signed On 07-05-2025 15:24:55 PST by Burke Reynaga Please click the below link to view image of tracing.
[2025-07-05] MEDS: ZINC SULFATE 220mg CAP or TAB PO SCH (10:18)
--- NOTE | 2025-07-05 10:34 | DVHPN2 ---
Reviewed: Care Plan, H&P, Labs, Medications, Previous Orders, Radiology Changes from previous H/P or p: No Changes Objective Vitals Vital Signs Date Time Temp Pulse Resp B/P (MAP) Pulse Ox O2 Delivery O2 Flow Rate FiO2 07/05/25 10:20 109 118/67 07/05/25 09:00 97.2 20 97 97.2 07/05/25 06:44 Nasal Cannula 3.0 07/05/25 06:44 32 Intake/Output Intake and Output 07/05/25 07:00 Intake Total 625 ml Output Total 675 ml Balance -50 ml Intake Oral 625 ml Output Urine Total 675 ml # Bowel Movements 4 Medications Current Medications Medications Dose Ordered Sig/Isa Route Start Time Stop Time Status Last Admin Dose Admin Furosemide 40 mg DAILY IV 07/03/25 10:00 07/05/25 09:55 40 MG Spironolactone 25 mg DAILY PO 07/03/25 10:00 07/05/25 10:19 25 MG Atorvastatin Calcium 40 mg HS PO 07/03/25 22:00 07/04/25 21:48 40 MG Levothyroxine Sodium 125 mcg QAM@0600 PO 07/03/25 06:00 07/05/25 06:23 125 MCG Paroxetine HCl 20 mg DAILY PO 07/03/25 10:00 07/05/25 10:18 20 MG Metoprolol Tartrate 75 mg BID PO 07/03/25 10:00 07/05/25 10:20 75 MG Losartan Potassium 50 mg DAILY PO 07/03/25 10:00 07/05/25 10:05 50 MG Levetiracetam 500 mg BID PO 07/03/25 10:00 07/05/25 10:01 500 MG Amiodarone HCl 100 mg DAILY PO 07/03/25 10:00 07/05/25 10:00 100 MG Ipratropium [place] 0.5 mg Q6HWA NEB 07/03/25 06:00 07/05/25 06:44 0.5 MG Albuterol 2.5 mg Q6HWA NEB 07/03/25 06:00 07/05/25 06:44 2.5 MG Lactulose 30 ml BIDPRN PRN PO 07/03/25 02:15 07/04/25 13:00 30 ML Azithromycin 500 mg DAILY PO 07/03/25 02:30 07/05/25 10:03 500 MG Oseltamivir Phosphate 30 mg BID PO 07/03/25 22:00 07/08/25 21:59 07/05/25 10:18 30 MG Ceftriaxone Sodium 50 ml @ 100 mls/hr DAILY@09 IV 07/04/25 09:00 07/05/25 09:58 100 MLS/HR Ascorbic Acid 500 mg BID PO 07/04/25 22:00 07/05/25 10:04 500 MG Zinc Sulfate 220 mg DAILY PO 07/05/25 10:00 07/05/25 10:18 220 MG Cholecalciferol 4,000 unit DAILY PO 07/05/25 10:00 07/05/25 10:04 4,000 UNIT Dexamethasone Sodium Phosphate 6 mg DAILY IV 07/05/25 10:00 07/05/25 09:52 6 MG Enoxaparin Sodium 100 mg Q24H SC 07/05/25 10:00 07/05/25 10:06 100 MG Laboratory Results Laboratory Tests 07/05/25 05:30 Chemistry Test 07/05/25 05:30 Albumin 3.1 g/dL (3.2-4.8) L Calcium Level 9.1 mg/dL (8.7-10.4) Total Protein 5.5 g/dL (5.7-8.2) L LFT Test 07/05/25 05:30 Alanine Aminotransferase (ALT) 19 U/L (7-40) Alkaline Phosphatase 135 U/L (46-116) H Aspartate Amino Transferase (AST) 21 U/L (13-40) Total Bilirubin 0.2 mg/dL (0.2-1.0) Urinalysis Test 07/02/25 19:41 Urine Color Light-yellow (Yellow) Urine Clarity Turbid (Clear) H Urine pH 5.0 (5.0-9.0) Urine Specific [place] 1.009 (1.001-1.035) Urine Protein Negative (Negative) Urine Ketones Negative (Negative) Urine Blood Trace /uL (Negative) H Urine Nitrite Negative (Negative) Urine Bilirubin Negative (Negative) Urine Urobilinogen Normal mg/dL (Negative) Urine Leukocyte Esterase 2+ /uL (Negative) Urine RBC 3 /hpf (0 - 4) Urine Microscopic WBC 34 /HPF (0-5) H Urine Squamous Epithelial Cells Few /hpf (<5) Urine Bacteria Many /hpf (None Seen) H Urine Hyaline Casts Few /lpf (0 - 2) Urine Mucus Few (None Seen) Urine Glucose 3+ mg/dL (Normal) H Microbiology Microbiology Date/Time Source Procedure Growth Status 07/03/25 11:23 Blood Blood Culture - Preliminary NO GROWTH AFTER 24 HOURS OF INCUBATION. Resulted 07/02/25 19:41 Voided Urine Urine Culture - Preliminary Resulted Labs and/or images reviewed: Labs reviewed by me, Image(s) reviewed by me Assessment/Plan Assessment/Plan Acute on chronic hypoxic respiratory failure, oxygen by nasal cannula Acute on chronic congestive heart failure mildly reduced ejection fraction Volume overload, due to above Possible pneumonia, likely due to Gram-positive/Gram-negative bacteria Rocephin azithromycin COPD (on 3 L of oxygen at home), stable Atrial fibrillation with RVR Acquired hypercoagulability Flu type B positive: Tamiflu COVID positive pneumonia: Zinc vitamin-C vitamin D3 Decadron Hypertension Hypothyroidism UTI: Urine cultures growing Gram-negative rods, continue Rocephin blood cultures negative Dyslipidemia Diabetes type 2 History of CVA Morbid obesity Moderate anemia Hypokalemia Multiple bruises all over the body platelet count normal INR normal, DC Lovenox Patient on Eliquis at home ? Etiology Time spent 65 minutes Advanced care planning time 20 minutes Patient is full code Examined with the help of claims adjuster patient's daughter Oxana [phone] Plan discussed with: Patient My Orders Orders - NEERAJ WOMACK MD Procedure Category Date Status Time Ascorbic Acid Tablet PHA 07/04/25 In Process (Vitamin C Tablet) 22:00 Zinc Sulfate PHA 07/05/25 In Process 10:00 Cholecalciferol PHA 07/05/25 In Process Tablet (Vitamin D3 10:00 Dexamethasone PHA 07/05/25 In Process Injection (Decadron 10:00 Complete Blood Count LAB 07/06/25 Verified 04:00 Comprehensive LAB 07/06/25 Verified Metabolic Panel 04:00 Complete Blood Count LAB 07/07/25 Verified 04:00 Comprehensive LAB 07/07/25 Verified Metabolic Panel 04:00 Date of Service: Jul 05, 2025 Billing Provider: NEERAJ WOMACK MD Common Visit Codes: [id number] CARE 30-74 MIN NEERAJ WOMACK MD Jul 05, 2025 10:34
--- NOTE | 2025-07-05 12:47 | CONS ---
Pharmacy Clinical Information: From Heart Failure Fallout Report on CQM Application, StephenBernarda christiansen is a 80-year-old female with hypertension, dyslipidemia, hypothyroidism, AFib, AHF with mildly reduced EF (HFmrEF), diabetes, COPD (on 3 L of oxygen at home), right-sided CVA, status post femur SGLT2i have a Class of Recommendation 2a in HFmrEF. Please consider adding an anti-hyperglycemic drug and switch metoprolol tartrate to metoprolol succinate as the evidence-based beta-marshall Monitor blood pressure, heart rate, renal function, electrolytes, and titrate doses toward guideline-recommended targets. SEB PARK PHY RESIDENT Jul 05, 2025 12:47
[2025-07-05] MEDS: ALPRAZolam 0.25 MG TAB PO PRN (15:24)
[2025-07-06] VITALS (15 sets, daily range): BP systolic 104–142; BP diastolic 72–112; PULSE 69–117; RESP 14–20; TEMP 97.2–98.1; O2SAT 94–100
[2025-07-06 05:37] LABS: Hematocrit 28.7 % (36.0-46.0); Hemoglobin 9.3 g/dL (12.2-16.2); Mean Corpuscular Hemoglobin 27.8 pg (28.0-32.0); Mean Corpuscular Volume 85.9 fL (80.0-100.0); Nucleated Red Blood Cells % 0.2 %
[2025-07-06 06:40] LABS: Alanine Aminotransferase 29 U/L (7-40); Albumin 3.8 g/dL (3.2-4.8); Anion Gap 12 (5-15); BUN/Creatinine Ratio 18.5 (10.0-20.0); Calcium 9.5 mg/dL (8.7-10.4); Carbon Dioxide 25 mmol/L (20-31); Potassium 5.1 mmol/L (3.5-5.1); Total Protein 6.5 g/dL (5.7-8.2)
[2025-07-06 06:49] LABS: Alkaline Phosphatase 156 U/L (46-116); Bilirubin, Total 0.2 mg/dL (0.2-1.0); Blood Urea Nitrogen 38 mg/dL (9-23); Chloride 96 mmol/L (98-107); Glucose 227 mg/dL (74-106); Sodium 133 mmol/L (136-145)
--- NOTE | 2025-07-06 09:18 | DVHPN2 ---
Reviewed: Care Plan, H&P, Labs, Medications, Previous Orders, Radiology Changes from previous H/P or p: No Changes Objective Vitals Vital Signs Date Time Temp Pulse Resp B/P (MAP) Pulse Ox O2 Delivery O2 Flow Rate FiO2 07/06/25 08:58 97.5 69 20 138/72 (94) 96 97.5 07/06/25 05:53 Nasal Cannula* 2 28 Intake/Output Intake and Output 07/06/25 07:00 Intake Total 990 ml Output Total 450 ml Balance 540 ml Intake Oral 940 ml IV Total 50 ml Output Urine Total 450 ml # Bowel Movements 2 Medications Current Medications Medications Dose Ordered Sig/Isa Route Start Time Stop Time Status Last Admin Dose Admin Furosemide 40 mg DAILY IV 07/03/25 10:00 07/05/25 09:55 40 MG Spironolactone 25 mg DAILY PO 07/03/25 10:00 07/05/25 10:19 25 MG Atorvastatin Calcium 40 mg HS PO 07/03/25 22:00 07/05/25 22:18 40 MG Levothyroxine Sodium 125 mcg QAM@0600 PO 07/03/25 06:00 07/06/25 06:20 125 MCG Paroxetine HCl 20 mg DAILY PO 07/03/25 10:00 07/05/25 10:18 20 MG Metoprolol Tartrate 75 mg BID PO 07/03/25 10:00 07/05/25 22:21 75 MG Losartan Potassium 50 mg DAILY PO 07/03/25 10:00 07/05/25 10:05 50 MG Levetiracetam 500 mg BID PO 07/03/25 10:00 07/05/25 22:18 500 MG Amiodarone HCl 100 mg DAILY PO 07/03/25 10:00 07/05/25 10:00 100 MG Ipratropium [place] 0.5 mg Q6HWA NEB 07/03/25 06:00 07/06/25 05:53 0.5 MG Albuterol 2.5 mg Q6HWA NEB 07/03/25 06:00 07/06/25 05:53 2.5 MG Lactulose 30 ml BIDPRN PRN PO 07/03/25 02:15 07/04/25 13:00 30 ML Azithromycin 500 mg DAILY PO 07/03/25 02:30 07/05/25 10:03 500 MG Oseltamivir Phosphate 30 mg BID PO 07/03/25 22:00 07/08/25 21:59 07/05/25 22:17 30 MG Ceftriaxone Sodium 50 ml @ 100 mls/hr DAILY@09 IV 07/04/25 09:00 07/05/25 09:58 100 MLS/HR Ascorbic Acid 500 mg BID PO 07/04/25 22:00 07/05/25 22:18 500 MG Zinc Sulfate 220 mg DAILY PO 07/05/25 10:00 07/05/25 10:18 220 MG Cholecalciferol 4,000 unit DAILY PO 07/05/25 10:00 07/05/25 10:04 4,000 UNIT Dexamethasone Sodium Phosphate 6 mg DAILY IV 07/05/25 10:00 07/05/25 09:52 6 MG Alprazolam 0.25 mg Q12HP PRN PO 07/05/25 14:15 07/05/25 15:24 0.25 MG Laboratory Results Laboratory Tests 07/06/25 05:00 Chemistry Test 07/06/25 05:00 Albumin 3.8 g/dL (3.2-4.8) Calcium Level 9.5 mg/dL (8.7-10.4) Total Protein 6.5 g/dL (5.7-8.2) LFT Test 07/06/25 05:00 Alanine Aminotransferase (ALT) 29 U/L (7-40) Alkaline Phosphatase 156 U/L (46-116) H Aspartate Amino Transferase (AST) 39 U/L (13-40) Total Bilirubin 0.2 mg/dL (0.2-1.0) Urinalysis Test 07/02/25 19:41 Urine Color Light-yellow (Yellow) Urine Clarity Turbid (Clear) H Urine pH 5.0 (5.0-9.0) Urine Specific [place] 1.009 (1.001-1.035) Urine Protein Negative (Negative) Urine Ketones Negative (Negative) Urine Blood Trace /uL (Negative) H Urine Nitrite Negative (Negative) Urine Bilirubin Negative (Negative) Urine Urobilinogen Normal mg/dL (Negative) Urine Leukocyte Esterase 2+ /uL (Negative) Urine RBC 3 /hpf (0 - 4) Urine Microscopic WBC 34 /HPF (0-5) H Urine Squamous Epithelial Cells Few /hpf (<5) Urine Bacteria Many /hpf (None Seen) H Urine Hyaline Casts Few /lpf (0 - 2) Urine Mucus Few (None Seen) Urine Glucose 3+ mg/dL (Normal) H Microbiology Microbiology Date/Time Source Procedure Growth Status 07/03/25 11:23 Blood Blood Culture - Preliminary NO GROWTH AFTER 48 HOURS OF INCUBATION. Resulted 07/02/25 19:41 Voided Urine Urine Culture - Final Klebsiella pneumoniae Complete Labs and/or images reviewed: Labs reviewed by me, Image(s) reviewed by me Assessment/Plan Assessment/Plan Acute on chronic hypoxic respiratory failure, oxygen by nasal cannula Acute on chronic congestive heart failure mildly reduced ejection fraction Volume overload, due to above Possible pneumonia, likely due to Gram-positive/Gram-negative bacteria Rocephin azithromycin COPD (on 3 L of oxygen at home), stable Atrial fibrillation with RVR Use of home oxygen 3 L/min Acquired hypercoagulability Flu type B positive: Tamiflu COVID positive pneumonia: Zinc vitamin-C vitamin D3 Decadron Hypertension Hypothyroidism UTI: Urine cultures growing Klebsiella pneumoniae, continue Rocephin blood cultures negative Dyslipidemia Diabetes type 2 History of CVA Morbid obesity Moderate anemia Hypokalemia History of DVT on Eliquis Multiple bruises all over the body platelet count normal INR normal, DC Lovenox Time spent 65 minutes Advanced care planning time 20 minutes Patient is full code Examined with the help of hair tinter patient's daughter Oxana [phone] Daughter requesting patient to be discharged home on home health for IV antibiotics. Plan discussed with: Patient My Orders Orders - NEERAJ WOMACK MD Procedure Category Date Status Time Alprazolam Tablet PHA 07/05/25 In Process (Xanax Tablet) 14:15 Date of Service: Jul 06, 2025 Billing Provider: NEERAJ WOMACK MD Common Visit Codes: [id number] CARE 30-74 MIN NEERAJ WOMACK MD Jul 06, 2025 09:18
[2025-07-06] MEDS ORDERED: CHOL3000 PO (11:25)
[2025-07-06] MEDS ORDERED: ASCO500C49 PO (11:25)
[2025-07-06] MEDS ORDERED: ZINC220C10 PO (11:25)
[2025-07-06] MEDS ORDERED: TAMIFLU PO (11:28)
--- NOTE | 2025-07-06 11:32 | DVHDS2 ---
Discharge Summary Date of Admission Jul 02, 2025 at 23:06 Date of Discharge: Jul 06, 2025 Admitting Diagnosis Shortness of breath and generalized weakness Wounds: None Labs/Diagnostic Data: Laboratory Results Test 07/06/25 05:00 07/03/25 07:52 07/03/25 05:28 07/02/25 20:37 White Blood Count 6.8 10^3/uL (4.4-10.8) Red Blood Count 3.35 10^6/uL (4.0-5.20) Hemoglobin 9.3 g/dL (12.2-16.2) Hematocrit 28.7 % (36.0-46.0) Mean Corpuscular Volume 85.9 fL (80.0-100.0) Mean Corpuscular Hemoglobin 27.8 pg (28.0-32.0) Mean Corpuscular Hemoglobin Concent 32.4 g/dL (32.0-36.0) Red Cell Distribution Width 17.0 % (11.8-14.3) Platelet Count 267 10^3/uL (140-450) Mean Platelet Volume 9.0 fL (6.9-10.8) Neutrophils (%) (Auto) 75.8 % (37.0-80.0) Lymphocytes (%) (Auto) 16.6 % (10.0-50.0) Monocytes (%) (Auto) 7.4 % (0.0-12.0) Eosinophils (%) (Auto) 0.0 % (0.0-7.0) Basophils (%) (Auto) 0.2 % (0.0-2.0) Neutrophils # (Auto) 5.1 10 ^3/uL (1.6-8.6) Lymphocytes # (Auto) 1.1 10 ^3/uL (0.4-5.4) Monocytes # (Auto) 0.5 10 ^3/uL (0-1.3) Eosinophils # (Auto) 0 10 ^3/uL (0-0.8) Basophils # (Auto) 0 10 ^3/uL (0-0.2) Nucleated Red Blood Cells 0.2 % Sodium Level 133 mmol/L (136-145) Potassium Level 5.1 mmol/L (3.5-5.1) Chloride Level 96 mmol/L (98-107) Carbon Dioxide Level 25 mmol/L (20-31) Anion Gap 12 (5-15) Blood Urea Nitrogen 38 mg/dL (9-23) Creatinine 2.05 mg/dL (0.550-1.02) Glomerular Filtration Rate Calc 24 mL/min (>90) BUN/Creatinine Ratio 18.5 (10.0-20.0) Serum Glucose 227 mg/dL (74-106) Calcium Level 9.5 mg/dL (8.7-10.4) Total Bilirubin 0.2 mg/dL (0.2-1.0) Aspartate Amino Transferase (AST) 39 U/L (13-40) Alanine Aminotransferase (ALT) 29 U/L (7-40) Alkaline Phosphatase 156 U/L (46-116) Total Protein 6.5 g/dL (5.7-8.2) Albumin 3.8 g/dL (3.2-4.8) Prothrombin Time 12.7 sec (9.3-11.8) Prothrombin Time INR 1.22 (0.9-1.15) Activated Partial Thromboplast Time 36.3 SEC (24.5-34.5) Hemoglobin A1c 5.7 % A1C (<5.7) Phosphorus Level 4.3 mg/dL (2.4-5.1) Magnesium Level 2.0 mg/dL (1.6-2.6) Thyroid Stimulating Hormone (TSH) 4.44 uIU/mL (0.55-4.78) Parathyroid Hormone (Intact) 101.7 pg/mL (18.4-80.1) Influenza Type A Antigen Negative (Negative) Influenza Type B Antigen Positive (Negative) SARS-CoV-2 Antigen (Rapid) Positive (NEGATIVE) Troponin I High Sensitivity 18 ng/L (</=34) Test 07/02/25 19:41 07/02/25 17:42 Urine Color Light-yellow (Yellow) Urine Clarity Turbid (Clear) Urine pH 5.0 (5.0-9.0) Urine Specific [place] 1.009 (1.001-1.035) Urine Protein Negative (Negative) Urine Ketones Negative (Negative) Urine Blood Trace /uL (Negative) Urine Nitrite Negative (Negative) Urine Bilirubin Negative (Negative) Urine Urobilinogen Normal mg/dL (Negative) Urine Leukocyte Esterase 2+ /uL (Negative) Urine RBC 3 /hpf (0 - 4) Urine Microscopic WBC 34 /HPF (0-5) Urine Squamous Epithelial Cells Few /hpf (<5) Urine Bacteria Many /hpf (None Seen) Urine Hyaline Casts Few /lpf (0 - 2) Urine Mucus Few (None Seen) Urine Glucose 3+ mg/dL (Normal) Lactic Acid Level 1.4 mmol/L (0.4-2.0) B-Type Natriuretic Peptide 266.68 pg/mL (0-100) Lipase 28 U/L (12-53) Other Laboratory Tests 07/06/25 05:00 Brief Hx & Hospital Course: 80-year-old female with multiple medical problems including atrial fibrillation use of home oxygen hypertension hypothyroidism hypercholesterolemia type 2 diabetes history of CVA moderate obesity chronic anemia history of DVT on Eliquis came in for altered mental status confusion generalized weakness found to have type B flu. Treated with the Tamiflu also had positive pneumonia treated with Rocephin and azithromycin urine cultures grew Klebsiella pneumoniae Rocephin was continued. Patient on 3 L of oxygen at the time of discharge which is her current usual dose at home. Vital signs are stable afebrile discussed with the patient's daughter patient being discharged home on home health to receive Rocephin 1 g IV daily for two weeks for UTI and azithromycin 500 mg IV daily for two weeks for pneumonia prescription for zinc vitamin-C vitamin D3 Tamiflu transmitted to the pharmacy discharged on home health. General condition stable but poor at the time of discharge Consults/Reason for consult None Operations or Procedures None Condition at Discharge: Fair Final Diagnosis/Problems List Acute on chronic hypoxic respiratory failure, oxygen by nasal cannula Acute on chronic congestive heart failure mildly reduced ejection fraction Volume overload, due to above Possible pneumonia, likely due to Gram-positive/Gram-negative bacteria Rocephin azithromycin COPD (on 3 L of oxygen at home), stable Atrial fibrillation with RVR Use of home oxygen 3 L/min Acquired hypercoagulability Flu type B positive: Tamiflu COVID positive pneumonia: Zinc vitamin-C vitamin D3 Decadron Hypertension Hypothyroidism UTI: Urine cultures growing Klebsiella pneumoniae, continue Rocephin blood cultures negative Dyslipidemia Diabetes type 2 History of CVA Morbid obesity Moderate anemia Hypokalemia History of DVT on Eliquis Discharge Disposition: Home with Health Services Discharge Instruct/Medications Diet: Cardiac 2g Na,low cholest Activity: Light activity Follow Up/Referral: Follow up with your primary Dr in two weeks Resume all previous home medications Medications: Rocephin Azithromycin Both of them to be given by home health IV Zinc Vitamin-C Vitamin D3 [facility] Scheduled Amiodarone Hcl (Amiodarone Hcl), 100 MG PO DAILY, (Reported) Apixaban Base (Eliquis), 5 MG PO DAILY, (Reported) Ascorbic Acid (Vitamin C), 500 MG PO BID Atorvastatin Calcium (Atorvastatin Calcium), 40 MG PO DAILY, (Reported) Doxycycline (Monohydrate) (Doxycycline), 100 MG PO BID Furosemide (Furosemide), 40 MG PO DAILY, (Reported) Levothyroxine Sodium (Levothyroxine Sodium), 125 MCG PO QAM, (Reported) Losartan Potassium (Losartan Potassium), 25 MG PO DAILY, (Reported) Metformin Hydrochloride (Metformin Hcl), 500 MG PO IBID, (Reported) Metoprolol Tartrate (Metoprolol Tartrate), 50 MG PO BIDD, (Reported) Oseltamivir Phosphate (Tamiflu), 75 MG PO DAILY Zinc Sulfate (Zinc), 220 MG PO DAILY Scheduled PRN Alprazolam (Alprazolam), 0.25 MG PO DAILYPRN PRN for ANXIETY, (Reported) Cholecalciferol (Vitamin D3), 3,000 UNIT PO DAILY PRN Miscellaneous Medications Fluticasone Furoate-Vilanterol (Breo Ellipta 200-25 Mcg/INH), 1 INH IN, (Reported) Hydralazine Hcl (Hydralazine Hcl), 25 MG PO, (Reported) Levetiracetam (Keppra), 500 MG PO, (Reported) Paroxetine (Paxil Tablet), 20 MG PO, (Reported) Potassium Chloride (Potassium Chloride Cr), 20 MEQ PO, (Reported) Spironolactone (Spironolactone), 25 MG PO, (Reported) 39 (Time taken for discharge summary 39 minutes) Discharge Statement: "Patient was advised to return to the ER or call 911 if any headaches, dizziness, shortness of breath, chest pain, abdominal pain, bleeding, fevers, or worsening of medical condition. Patient was counseled about treatment plan, medications, possible side effects, patientverbalized understanding. All questions were answered to the best of my ability. This discharge took greater then 30 minutes in planning, reviewing documentation, counseling the patient, and discussing with other team members." ASSESSMENT ASSESSMENT Hospital Course Improved Assessment Acute on chronic hypoxic respiratory failure, oxygen by nasal cannula Acute on chronic congestive heart failure mildly reduced ejection fraction Volume overload, due to above Possible pneumonia, likely due to Gram-positive/Gram-negative bacteria Rocephin azithromycin COPD (on 3 L of oxygen at home), stable Atrial fibrillation with RVR Use of home oxygen 3 L/min Acquired hypercoagulability Flu type B positive: Tamiflu COVID positive pneumonia: Zinc vitamin-C vitamin D3 Decadron Hypertension Hypothyroidism UTI: Urine cultures growing Klebsiella pneumoniae, continue Rocephin blood cultures negative Dyslipidemia Diabetes type 2 History of CVA Morbid obesity Moderate anemia Hypokalemia History of DVT on Eliquis Date of Service: Jul 06, 2025 Billing Provider: NEERAJ WOMACK MD Common Visit Codes: [id number] DISCH DAY >30min NEERAJ WOMACK MD Jul 06, 2025 11:32
[2025-07-07] VITALS (15 sets, daily range): BP systolic 92–165; BP diastolic 50–86; PULSE 74–109; RESP 14–22; TEMP 97–97.8; O2SAT 91–100
[2025-07-07 05:56] LABS: Hematocrit 28.7 % (36.0-46.0); Hemoglobin 9.0 g/dL (12.2-16.2); Mean Corpuscular Hemoglobin 27.3 pg (28.0-32.0); Mean Corpuscular Volume 87.3 fL (80.0-100.0); Nucleated Red Blood Cells % 0.4 %
[2025-07-07 06:19] LABS: Anion Gap 10 (5-15); BUN/Creatinine Ratio 24.2 (10.0-20.0); Calcium 9.3 mg/dL (8.7-10.4); Carbon Dioxide 27 mmol/L (20-31); Total Protein 6.3 g/dL (5.7-8.2)
[2025-07-07 06:20] LABS: Albumin 3.7 g/dL (3.2-4.8)
[2025-07-07 06:21] LABS: Alanine Aminotransferase 52 U/L (7-40); Alkaline Phosphatase 184 U/L (46-116); Blood Urea Nitrogen 50 mg/dL (9-23); Chloride 96 mmol/L (98-107); Glucose 229 mg/dL (74-106); Potassium 5.1 mmol/L (3.5-5.1); Sodium 133 mmol/L (136-145)
[2025-07-07 06:23] LABS: Bilirubin, Total 0.2 mg/dL (0.2-1.0)
[2025-07-07] MEDS: OSELTAMIVIR 30 MG CAP PO SCH (09:24)
--- NOTE | 2025-07-07 10:22 | DVHPN2 ---
Reviewed: Care Plan, H&P, Labs, Medications, Previous Orders, Radiology Changes from previous H/P or p: No Changes Objective Vitals Vital Signs Date Time Temp Pulse Resp B/P (MAP) Pulse Ox O2 Delivery O2 Flow Rate FiO2 07/07/25 09:45 164/80 07/07/25 09:44 125 07/07/25 09:00 97.8 20 97 97.8 07/07/25 08:00 Nasal Cannula* 3 32 Intake/Output Intake and Output 07/07/25 07:00 Intake Total 600 ml Output Total 400 ml Balance 200 ml Intake Oral 550 ml IV Total 50 ml Output Urine Total 400 ml Medications Current Medications Medications Dose Ordered Sig/Isa Route Start Time Stop Time Status Last Admin Dose Admin Furosemide 40 mg DAILY IV 07/03/25 10:00 07/07/25 09:43 40 MG Spironolactone 25 mg DAILY PO 07/03/25 10:00 07/07/25 09:24 25 MG Atorvastatin Calcium 40 mg HS PO 07/03/25 22:00 07/06/25 21:21 40 MG Levothyroxine Sodium 125 mcg QAM@0600 PO 07/03/25 06:00 07/07/25 06:29 125 MCG Paroxetine HCl 20 mg DAILY PO 07/03/25 10:00 07/07/25 09:24 20 MG Metoprolol Tartrate 75 mg BID PO 07/03/25 10:00 07/07/25 09:44 75 MG Losartan Potassium 50 mg DAILY PO 07/03/25 10:00 07/07/25 09:45 50 MG Levetiracetam 500 mg BID PO 07/03/25 10:00 07/07/25 09:23 500 MG Amiodarone HCl 100 mg DAILY PO 07/03/25 10:00 07/07/25 09:23 100 MG Ipratropium [place] 0.5 mg Q6HWA NEB 07/03/25 06:00 07/07/25 07:29 0.5 MG Albuterol 2.5 mg Q6HWA NEB 07/03/25 06:00 07/07/25 07:29 2.5 MG Lactulose 30 ml BIDPRN PRN PO 07/03/25 02:15 07/04/25 13:00 30 ML Azithromycin 500 mg DAILY PO 07/03/25 02:30 07/07/25 09:23 500 MG Ceftriaxone Sodium 50 ml @ 100 mls/hr DAILY@09 IV 07/04/25 09:00 07/07/25 09:19 100 MLS/HR Ascorbic Acid 500 mg BID PO 07/04/25 22:00 07/07/25 09:24 500 MG Zinc Sulfate 220 mg DAILY PO 07/05/25 10:00 07/07/25 09:45 220 MG Cholecalciferol 4,000 unit DAILY PO 07/05/25 10:00 07/07/25 09:22 4,000 UNIT Dexamethasone Sodium Phosphate 6 mg DAILY IV 07/05/25 10:00 07/07/25 09:20 6 MG Alprazolam 0.25 mg Q12HP PRN PO 07/05/25 14:15 07/05/25 15:24 0.25 MG Oseltamivir Phosphate 30 mg DAILY PO 07/07/25 10:00 07/08/25 10:01 07/07/25 09:24 30 MG Laboratory Results Laboratory Tests 07/07/25 05:00 Chemistry Test 07/07/25 05:00 Albumin 3.7 g/dL (3.2-4.8) Calcium Level 9.3 mg/dL (8.7-10.4) Total Protein 6.3 g/dL (5.7-8.2) LFT Test 07/07/25 05:00 Alanine Aminotransferase (ALT) 52 U/L (7-40) H Alkaline Phosphatase 184 U/L (46-116) H Aspartate Amino Transferase (AST) 59 U/L (13-40) H Total Bilirubin 0.2 mg/dL (0.2-1.0) Urinalysis Test 07/02/25 19:41 Urine Color Light-yellow (Yellow) Urine Clarity Turbid (Clear) H Urine pH 5.0 (5.0-9.0) Urine Specific [place] 1.009 (1.001-1.035) Urine Protein Negative (Negative) Urine Ketones Negative (Negative) Urine Blood Trace /uL (Negative) H Urine Nitrite Negative (Negative) Urine Bilirubin Negative (Negative) Urine Urobilinogen Normal mg/dL (Negative) Urine Leukocyte Esterase 2+ /uL (Negative) Urine RBC 3 /hpf (0 - 4) Urine Microscopic WBC 34 /HPF (0-5) H Urine Squamous Epithelial Cells Few /hpf (<5) Urine Bacteria Many /hpf (None Seen) H Urine Hyaline Casts Few /lpf (0 - 2) Urine Mucus Few (None Seen) Urine Glucose 3+ mg/dL (Normal) H Microbiology Microbiology Date/Time Source Procedure Growth Status 07/03/25 11:23 Blood Blood Culture - Preliminary NO GROWTH AFTER 72 HOURS OF INCUBATION. Resulted 07/02/25 19:41 Voided Urine Urine Culture - Final Klebsiella pneumoniae Complete Labs and/or images reviewed: Labs reviewed by me, Image(s) reviewed by me Assessment/Plan Assessment/Plan Acute on chronic hypoxic respiratory failure, oxygen by nasal cannula Acute on chronic congestive heart failure mildly reduced ejection fraction Volume overload, due to above Possible pneumonia, likely due to Gram-positive/Gram-negative bacteria Rocephin azithromycin COPD (on 3 L of oxygen at home), stable Atrial fibrillation with RVR Use of home oxygen 3 L/min Acquired hypercoagulability Flu type B positive: Tamiflu COVID positive pneumonia: Zinc vitamin-C vitamin D3 Decadron Hypertension Hypothyroidism UTI: Urine cultures growing Klebsiella pneumoniae, continue Rocephin blood cultures negative Dyslipidemia Diabetes type 2 History of CVA Morbid obesity Moderate anemia Hypokalemia History of DVT on Eliquis Multiple bruises all over the body platelet count normal INR normal, DC Lovenox Time spent 65 minutes Advanced care planning time 20 minutes Patient is full code Examined with the help of specialty molder patient's daughter Oxana [phone] Daughter requesting patient to be discharged home on home health for IV antibiotics. Patient was discharged on 07/06/2025, waiting for sitting up of infusion services Plan discussed with: Patient My Orders Orders - NEERAJ WOMACK MD Procedure Category Date Status Time Insert Midline ORDERS 07/06/25 Transmitted 11:09 * [employer] CONS 07/06/25 Transmitted Consult Refer To Home Health CORNEL 07/06/25 In Process 11:18 Discharge DISCHARGE 07/06/25 Transmitted 11:19 Date of Service: Jul 07, 2025 Billing Provider: NEERAJ WOMACK MD Common Visit Codes: [id number] INP/OBS CARE(HIGH) NEERAJ WOMACK MD Jul 07, 2025 10:22
[2025-07-08] VITALS (14 sets, daily range): BP systolic 96–131; BP diastolic 66–74; PULSE 89–117; RESP 16–20; TEMP 97.3–98.5; O2SAT 90–100
--- NOTE | 2025-07-08 09:22 | DVHPN2 ---
Reviewed: Care Plan, H&P, Labs, Medications, Previous Orders, Radiology Changes from previous H/P or p: No Changes Objective Vitals Vital Signs Date Time Temp Pulse Resp B/P (MAP) Pulse Ox O2 Delivery O2 Flow Rate FiO2 07/08/25 09:13 98.5 103 19 105/70 (82) 98 98.5 07/08/25 06:09 Nasal Cannula* 2 28 Intake/Output Intake and Output 07/08/25 07:00 Intake Total 690 ml Output Total 250 ml Balance 440 ml Intake Oral 640 ml IV Total 50 ml Output Urine Total 250 ml # Voids 2 Medications Current Medications Medications Dose Ordered Sig/Isa Route Start Time Stop Time Status Last Admin Dose Admin Furosemide 40 mg DAILY IV 07/03/25 10:00 07/07/25 09:43 40 MG Spironolactone 25 mg DAILY PO 07/03/25 10:00 07/07/25 09:24 25 MG Atorvastatin Calcium 40 mg HS PO 07/03/25 22:00 07/07/25 22:10 40 MG Levothyroxine Sodium 125 mcg QAM@0600 PO 07/03/25 06:00 07/08/25 05:42 125 MCG Paroxetine HCl 20 mg DAILY PO 07/03/25 10:00 07/07/25 09:24 20 MG Metoprolol Tartrate 75 mg BID PO 07/03/25 10:00 07/07/25 22:11 75 MG Losartan Potassium 50 mg DAILY PO 07/03/25 10:00 07/07/25 09:45 50 MG Levetiracetam 500 mg BID PO 07/03/25 10:00 07/07/25 22:10 500 MG Amiodarone HCl 100 mg DAILY PO 07/03/25 10:00 07/07/25 09:23 100 MG Ipratropium [place] 0.5 mg Q6HWA NEB 07/03/25 06:00 07/08/25 06:09 0.5 MG Albuterol 2.5 mg Q6HWA NEB 07/03/25 06:00 07/08/25 06:09 2.5 MG Lactulose 30 ml BIDPRN PRN PO 07/03/25 02:15 07/04/25 13:00 30 ML Azithromycin 500 mg DAILY PO 07/03/25 02:30 07/07/25 09:23 500 MG Ceftriaxone Sodium 50 ml @ 100 mls/hr DAILY@09 IV 07/04/25 09:00 07/07/25 09:19 100 MLS/HR Ascorbic Acid 500 mg BID PO 07/04/25 22:00 07/07/25 22:11 500 MG Zinc Sulfate 220 mg DAILY PO 07/05/25 10:00 07/07/25 09:45 220 MG Cholecalciferol 4,000 unit DAILY PO 07/05/25 10:00 07/07/25 09:22 4,000 UNIT Dexamethasone Sodium Phosphate 6 mg DAILY IV 07/05/25 10:00 07/07/25 09:20 6 MG Alprazolam 0.25 mg Q12HP PRN PO 07/05/25 14:15 07/05/25 15:24 0.25 MG Oseltamivir Phosphate 30 mg DAILY PO 07/07/25 10:00 07/08/25 10:01 07/07/25 09:24 30 MG Laboratory Results Laboratory Tests 07/07/25 05:00 Urinalysis Test 07/02/25 19:41 Urine Color Light-yellow (Yellow) Urine Clarity Turbid (Clear) H Urine pH 5.0 (5.0-9.0) Urine Specific [place] 1.009 (1.001-1.035) Urine Protein Negative (Negative) Urine Ketones Negative (Negative) Urine Blood Trace /uL (Negative) H Urine Nitrite Negative (Negative) Urine Bilirubin Negative (Negative) Urine Urobilinogen Normal mg/dL (Negative) Urine Leukocyte Esterase 2+ /uL (Negative) Urine RBC 3 /hpf (0 - 4) Urine Microscopic WBC 34 /HPF (0-5) H Urine Squamous Epithelial Cells Few /hpf (<5) Urine Bacteria Many /hpf (None Seen) H Urine Hyaline Casts Few /lpf (0 - 2) Urine Mucus Few (None Seen) Urine Glucose 3+ mg/dL (Normal) H Microbiology Microbiology Date/Time Source Procedure Growth Status 07/03/25 11:23 Blood Blood Culture - Preliminary NO GROWTH AFTER 72 HOURS OF INCUBATION. Resulted 07/02/25 19:41 Voided Urine Urine Culture - Final Klebsiella pneumoniae Complete Labs and/or images reviewed: Labs reviewed by me, Image(s) reviewed by me Assessment/Plan Assessment/Plan Acute on chronic hypoxic respiratory failure, oxygen by nasal cannula Acute on chronic congestive heart failure mildly reduced ejection fraction Volume overload, due to above Possible pneumonia, likely due to Gram-positive/Gram-negative bacteria Rocephin azithromycin COPD (on 3 L of oxygen at home), stable Atrial fibrillation with RVR Use of home oxygen 3 L/min Acquired hypercoagulability Flu type B positive: Tamiflu COVID positive pneumonia: Zinc vitamin-C vitamin D3 Decadron Hypertension Hypothyroidism UTI: Urine cultures growing Klebsiella pneumoniae, continue Rocephin blood cultures negative Dyslipidemia Diabetes type 2 History of CVA Morbid obesity Moderate anemia Hypokalemia History of DVT on Eliquis Multiple bruises all over the body platelet count normal INR normal, DC Lovenox Time spent 65 minutes Advanced care planning time 20 minutes Patient is full code Examined with the help of air pumper patient's daughter Oxana [phone] Daughter requesting patient to be discharged home on home health for IV antibiotics. Patient was discharged on 07/06/2025, waiting for sitting up of infusion services Spoke with the daughter by phone today DON Arzate at bedside Plan discussed with: Patient Date of Service: Jul 08, 2025 Billing Provider: NEERAJ WOMACK MD Common Visit Codes: [id number] INP/OBS CARE(HIGH) NEERAJ WOMACK MD Jul 08, 2025 09:22
[2025-07-08] MEDS ORDERED: DEXTROSE (50%) 50ML SYRG IV PRN (12:45)
[2025-07-08] MEDS: ACCU-CHEK COMFORT CURVE STRIP VI SCH (17:49)
[2025-07-08] MEDS: InsuLIN REG 1unit/0.01ml Soln (100units/ml) SC SCH (17:52)
[2025-07-09] VITALS (9 sets, daily range): BP systolic 109–132; BP diastolic 55–94; PULSE 101–126; RESP 18–20; TEMP 97.3–98.8; O2SAT 97–100
--- NOTE | 2025-07-09 08:12 | DVHPN2 ---
Reviewed: Care Plan, H&P, Labs, Medications, Previous Orders, Radiology Changes from previous H/P or p: No Changes Objective Vitals Vital Signs Date Time Temp Pulse Resp B/P (MAP) Pulse Ox O2 Delivery O2 Flow Rate FiO2 07/09/25 06:26 112 18 100 07/09/25 06:20 Nasal Cannula 4.0 07/09/25 06:20 36 07/09/25 05:00 98.6 109/77 (88) 98.6 Intake/Output Intake and Output 07/09/25 07:00 Intake Total 255 ml Output Total 1800 ml Balance -1545 ml Intake Oral 205 ml IV Total 50 ml Output Urine Total 1800 ml # Bowel Movements 3 Medications Current Medications Medications Dose Ordered Sig/Isa Route Start Time Stop Time Status Last Admin Dose Admin Furosemide 40 mg DAILY IV 07/03/25 10:00 07/08/25 10:41 40 MG Spironolactone 25 mg DAILY PO 07/03/25 10:00 07/07/25 09:24 25 MG Atorvastatin Calcium 40 mg HS PO 07/03/25 22:00 07/08/25 21:38 40 MG Levothyroxine Sodium 125 mcg QAM@0600 PO 07/03/25 06:00 07/09/25 06:43 125 MCG Paroxetine HCl 20 mg DAILY PO 07/03/25 10:00 07/08/25 11:16 20 MG Metoprolol Tartrate 75 mg BID PO 07/03/25 10:00 07/08/25 21:43 75 MG Losartan Potassium 50 mg DAILY PO 07/03/25 10:00 07/07/25 09:45 50 MG Levetiracetam 500 mg BID PO 07/03/25 10:00 07/08/25 21:37 500 MG Amiodarone HCl 100 mg DAILY PO 07/03/25 10:00 07/08/25 10:41 100 MG Ipratropium [place] 0.5 mg Q6HWA NEB 07/03/25 06:00 07/09/25 06:20 0.5 MG Albuterol 2.5 mg Q6HWA NEB 07/03/25 06:00 07/09/25 06:20 2.5 MG Lactulose 30 ml BIDPRN PRN PO 07/03/25 02:15 07/08/25 12:11 30 ML Azithromycin 500 mg DAILY PO 07/03/25 02:30 07/08/25 10:39 500 MG Ceftriaxone Sodium 50 ml @ 100 mls/hr DAILY@09 IV 07/04/25 09:00 07/08/25 10:34 100 MLS/HR Ascorbic Acid 500 mg BID PO 07/04/25 22:00 07/08/25 21:37 500 MG Zinc Sulfate 220 mg DAILY PO 07/05/25 10:00 07/08/25 11:16 220 MG Cholecalciferol 4,000 unit DAILY PO 07/05/25 10:00 07/08/25 10:39 4,000 UNIT Dexamethasone Sodium Phosphate 6 mg DAILY IV 07/05/25 10:00 07/08/25 10:00 6 MG Alprazolam 0.25 mg Q12HP PRN PO 07/05/25 14:15 07/05/25 15:24 0.25 MG Diagnostic Test (Pha) 1 strip Q6HR 07/08/25 18:00 07/09/25 06:00 1 STRIP Insulin Human Regular Q6HR SC 07/08/25 18:00 07/09/25 06:48 2 UNITS Dextrose 50 ml UD PRN IV 07/08/25 12:45 Laboratory Results Laboratory Tests 07/07/25 05:00 Urinalysis Test 07/02/25 19:41 Urine Color Light-yellow (Yellow) Urine Clarity Turbid (Clear) H Urine pH 5.0 (5.0-9.0) Urine Specific [place] 1.009 (1.001-1.035) Urine Protein Negative (Negative) Urine Ketones Negative (Negative) Urine Blood Trace /uL (Negative) H Urine Nitrite Negative (Negative) Urine Bilirubin Negative (Negative) Urine Urobilinogen Normal mg/dL (Negative) Urine Leukocyte Esterase 2+ /uL (Negative) Urine RBC 3 /hpf (0 - 4) Urine Microscopic WBC 34 /HPF (0-5) H Urine Squamous Epithelial Cells Few /hpf (<5) Urine Bacteria Many /hpf (None Seen) H Urine Hyaline Casts Few /lpf (0 - 2) Urine Mucus Few (None Seen) Urine Glucose 3+ mg/dL (Normal) H Microbiology Microbiology Date/Time Source Procedure Growth Status 07/03/25 11:23 Blood Blood Culture - Final NO GROWTH AFTER 5 DAYS OF INCUBATION. Complete 07/02/25 19:41 Voided Urine Urine Culture - Final Klebsiella pneumoniae Complete Labs and/or images reviewed: Labs reviewed by me, Image(s) reviewed by me Assessment/Plan Assessment/Plan Acute on chronic hypoxic respiratory failure, oxygen by nasal cannula Acute on chronic congestive heart failure mildly reduced ejection fraction Volume overload, due to above Possible pneumonia, likely due to Gram-positive/Gram-negative bacteria Rocephin azithromycin COPD (on 3 L of oxygen at home), stable Atrial fibrillation with RVR Use of home oxygen 3 L/min Acquired hypercoagulability Flu type B positive: Tamiflu COVID positive pneumonia: Zinc vitamin-C vitamin D3 Decadron Hypertension Hypothyroidism UTI: Urine cultures growing Klebsiella pneumoniae, continue Rocephin blood cultures negative Dyslipidemia Diabetes type 2 History of CVA Morbid obesity Moderate anemia Hypokalemia History of DVT on Eliquis Multiple bruises all over the body platelet count normal INR normal, DC Lovenox Time spent 55 minutes Advanced care planning time 20 minutes Patient is full code Examined with the help of brattice builder patient's daughter Oxana [phone] Daughter requesting patient to be discharged home on home health for IV antibiotics. Patient was discharged on 07/06/2025, waiting for sitting up of infusion services and home health by the medical social worker Examined today DON Farias at bedside Plan discussed with: Patient My Orders Orders - NEERAJ WOMACK MD Procedure Category Date Status Time Glucose Blood PHA 07/08/25 In Process (Accu-Chek Comfort 18:00 Insulin R (Human) PHA 07/08/25 In Process (Insulin R) 18:00 Dextrose 50% Syringe PHA 07/08/25 In Process 12:45 Date of Service: Jul 09, 2025 Billing Provider: NEERAJ WOMACK MD Common Visit Codes: [id number] INP/OBS CARE(HIGH) NEERAJ WOMACK MD Jul 09, 2025 08:12
[2025-07-09] MEDS ORDERED: ALBUTEROL SULF HFA 90MCG INH 200DOSE IN PRN (10:00)
== END 2025-07-09 13:55 | disposition home health service (06) | DRG 177 ==
LOC: EDBD 17:09 → ER 17:09 → OVERFLOW 23:06 → TELE-WESTW 07-03 02:04 → TELE-EAST 07-03 20:00
PROVIDERS: ADMIT Family Medicine; ATTEND Family Medicine
PROC: 05HF33Z Insertion of Infusion Device into Left Cephalic Vein, Percutaneous Approach (ICD-10-PCS; principal; 2025-07-06)
PROC: B54NZZA Ultrasonography of Left Upper Extremity Veins, Guidance (ICD-10-PCS; 2025-07-06)
DX: U07.1 COVID-19 (principal); I50.33 Acute on chronic diastolic (congestive) heart failure; J12.82 Pneumonia due to coronavirus disease 2019; J96.21 Acute and chronic respiratory failure with hypoxia; J10.00 Influenza due to other identified influenza virus with unspecified type of pneumonia; N17.0 Acute kidney failure with tubular necrosis; J15.69 Pneumonia due to other Gram-negative bacteria; I11.0 Hypertensive heart disease with heart failure; J44.0 Chronic obstructive pulmonary disease with (acute) lower respiratory infection; N39.0 Urinary tract infection, site not specified; E03.9 Hypothyroidism, unspecified; E11.9 Type 2 diabetes mellitus without complications; D64.9 Anemia, unspecified; E66.01 Morbid (severe) obesity due to excess calories; M48.56XA Collapsed vertebra, not elsewhere classified, lumbar region, initial encounter for fracture; D68.59 Other primary thrombophilia; Z68.41 Body mass index [BMI] 40.0-44.9, adult; I48.91 Unspecified atrial fibrillation; E78.5 Hyperlipidemia, unspecified; E87.5 Hyperkalemia; E87.6 Hypokalemia; E78.00 Pure hypercholesterolemia, unspecified; K80.20 Calculus of gallbladder without cholecystitis without obstruction; Z86.718 Personal history of other venous thrombosis and embolism; Z86.73 Personal history of transient ischemic attack (TIA), and cerebral infarction without residual deficits; Z79.899 Other long term (current) drug therapy
CPT/HCPCS: 36415; 71045; 74176; 80053; 81001; 82962; 83036; 83605; 83690; 83735; 83880; 83970; 84100; 84443; 84484; 85025; 85610; 85730; 87040; 87086; 87088; 87186; 87426; 87804; 93005; 94640; 96365; 96366; 96375; G0378; G9035; J1100; J1815; J2543